=== PATIENT | male | born 1955 | race Caucasian/White ===

== ENCOUNTER 2019-08-12 02:56 | Emergency (ER) | payer SELFPAY ==
[2019-08-12 03:06] VITALS: BP 147/89; PULSE 84; RESP 24; TEMP 36.8; O2SAT 97; BMI 28.2
--- NOTE | 2019-08-12 03:18 | ED_ITS ---
Entered by Diana Mike, acting as scribe for Harry Ramon DO HPI - URI/Sore Throat General: Chief Complaint: Upper Respiratory Infection Stated Complaint: HEAD STOPPED UP Time Seen by Provider: 08/12/19 03:18 Source: patient Mode of arrival: ambulatory Limitations: no limitations History of Present Illness: HPI Narrative: 63 yo m came to the er p[facility] for stuffy nose. Pt states that it has been going on for a few days. Pt states that it got to the point to where it was a little difficult to breath. MD elicited complaint: nasal congestion Onset (ago): day(s) Consistency: constant Severity: mild Associated symptoms: Deny abdominal pain, chills, chest pain, epistaxis, fever(s), headache(s), nausea, sinus pain or vomiting Review of Systems Const: Denies: fever or chills Eyes: Denies: change in vision or blurry vision ENMT: Reports: post nasal drip; Denies: painful swallowing, swelling of lips/tongue, bleeding gums, dental pain, Change in hearing, nose bleeds or facial/sinus pain Card: Denies: chest pain, palpitations, irregular heart rhythm, edema, swelling of feet/ankles, shortness of breath on exertion or shortness of breath when lying down Resp: Denies: shortness of breath, productive cough, non-productive cough or wheezing GI: Denies: abdominal pain, nausea, vomiting, rectal pain, blood in stool or black tarry stool : Denies: difficulty urinating, painful urination, urinary frequency, urinary urgency or blood in urine Musc: Denies: neck pain, back pain, redness or joint warmth Skin/Breast: Denies: rash, itching or redness Neuro: Denies: headache, dizziness, vertigo, confusion or seizure-like activity Psych: Reports: anxiety; Denies: visual hallucinations or auditory hallucinations PFSH ED PFSH: Statuses (acute, chronic, etc) shown below reflect problem list status as previously entered and may not be historically accurate Social History Smoking and tobacco status: former smoker Physical Exam Const: GENERAL APPEARANCE: well developed ORIENTATION/CONSCIOUSNESS: Yes oriented to person, Yes oriented to place and Yes oriented to time HENMT: COMMON NORMALS: normocephalic, external ears normal, TM's normal bilaterally, external nose normal and nasal mucous membranes and turbinates normal HEAD & SCALP: normocephalic; no scalp tenderness FACE & SINUS: normal facial exam NOSE: external nose normal, nasal mucous membranes and turbinates normal and nasal discharge EXTERNAL EAR: Yes external ears normal EXTERNAL AUDITORY CANAL: EAC abnormal EAC laterality: right Details: excessive cerumen and left Details: excessive cerumen TYMPANIC MEMBRANE: TM's normal bilaterally MOUTH: tongue normal THROAT: posterior oropharynx normal; no peritonsillar mass Eye: COMMON NORMALS: PERRL, EOMs intact bilaterally and conjunctivae normal EYELID: eyelids normal CONJUNCTIVA: Yes conjunctivae normal PUPIL: Yes PERRL Neck/C-Spine: COMMON NORMALS: full ROM GENERAL: No tracheal deviation Chest: COMMONS NORMALS: inspection of chest normal CHEST: No tenderness Resp: COMMON NORMALS: clear to auscultation bilaterally EFFORT & INSP ECTION: No tachypneic, No respiratory distress, No retractions, No uses accessory muscles and No tracheal deviation AUSCULTATION: clear to auscultation bilaterally, no rhonchi, no wheezes and lung sounds not diminished Cardio: COMMON NORMALS: regular rate and regular rhythm RATE: regular rate RHYTHM: regular rhythm HEART SOUNDS: no murmurs PERIPHERAL PULSES: radial pulses present GI: INSPECTION: No abdominal distension AUSCULTATION: No hyperactive bowel sounds and No hypoactive bowel sounds PALPATION: No guarding and No rigid PERCUSSION: no dullness to percussion and no tympanic to percussion Neuro: SENSORIUM/ORIENTATION: Yes oriented to person, Yes oriented to place and Yes oriented to time Psych: COMMON NORMALS: speech normal and activity/motor behavior normal (hyperactive) ATTITUDE: Yes agitated ACTIVITY/MOTOR BEHAVIOR: Yes psychomotor agitation SPEECH: Yes normal speech MOOD & AFFECT: Yes anxious Skin: COMMON NORMALS: no rashes or lesions noted GENERAL SKIN EXAM: no rashes or lesions noted Course Vital Signs: Vital signs: Vital Signs Temperature 98.3 F 08/12/19 03:06 Pulse Rate 84 08/12/19 03:06 Respiratory Rate 16 08/12/19 03:53 Blood Pressure 147/89 08/12/19 03:06 Pulse Oximetry 97 08/12/19 03:06 Discharge Plan Discharge Patient Disposition: Home, Self-Care Clinical Impression: Sinusitis Qualifiers: Sinusitis location: ethmoidal Chronicity: acute Recurrence: non-recurrent Qualified Code(s): J01.20 - Acute ethmoidal sinusitis, unspecified Condition: Stable Prescriptions: New Mucinex D Maximum Strength 120-1,200 mg tablet extended release 12 hr 1 tab PO BID PRN (Reason: congestion) Qty: 14 RF: 0 No Action metoprolol tartrate 25 mg Tablet 25 mg PO BID RF: 0 Discharge Orders: Discharge Order (Routine); Ordered 08/12/19 Ordered By: Harry Ramon Referrals: Nickolas Arroyo MD [Family Provider] - 4-7 days Discharge Diet: Usual diet Discharge Activity: Resume usual activity Patient Instructions: Sinusitis (ED) Discharge Date/Time: 08/12/19 03:54 Coding Level of Care Code ED [employer] Director for Chg Wyatt The documentation recorded by the Rashid lopez Stephanie Lyn, accurately reflects the service I personally performed and the decisions made by Tristen engle Jeremy John, DO Aug 12, 2019 02:56
[2019-08-12] MEDS: guaiFENesin 600 mg Tablet PO (03:48)
[2019-08-12] MEDS: LORazepam 2 mg Tablet PO (03:48)
[2019-08-12 03:53] VITALS: RESP 16
== END 2019-08-12 03:54 | disposition home or self-care (01) ==
PROVIDERS: Emergency Provider Emergency Medicine; Family Provider Family Medicine
DX: J01.20 Acute ethmoidal sinusitis, unspecified (principal); Z87.891 Personal history of nicotine dependence
CPT/HCPCS: 99281

== ENCOUNTER 2019-10-29 23:49 | Emergency (ER) | payer SELFPAY ==
[2019-10-29 23:55] VITALS: BP 163/83; PULSE 68; RESP 14; TEMP 36.8; O2SAT 96; BMI 29.5
--- NOTE | 2019-10-30 00:04 | ED_ITS ---
HPI - URI/Sore Throat General: Chief Complaint: Shortness of Breath/Dyspnea Stated Complaint: sob Time Seen by Provider: 10/29/19 23:51 Source: patient Mode of arrival: ambulatory Limitations: no limitations History of Present Illness: HPI Narrative: Patient comes in today with complaints of sinus congestion and pressure. Patient reports previous problems with the last episode occurred in July. Patient was prescribed Mucinex D at that time with good results. Patient appears well. Patient appears in mild discomfort. Patient denies high fever or chills. Patient has a history of sinus arrhythmia which he takes metoprolol for. Associated symptoms: Reports nasal congestion Review of Systems General: Reports: 10 or more systems reviewed and unremarkable except in HPI and below ENMT: Reports: nasal congestion PFSH ED PFSH: Social History Smoking and tobacco status: former smoker Physical Exam Const: COMMON NORMALS: no apparent distress and oriented x3 GENERAL APPEARANCE: cooperative HENMT: COMMON NORMALS: normocephalic and TM's normal bilaterally HEAD & SCALP: normal to inspection and normocephalic NOSE: mucous membranes and turbinates abnormal and nasal discharge TYMPANIC MEMBRANE: TM's normal bilaterally MOUTH: oral and palatal mucosa normal THROAT: posterior oropharynx abnormal erythema Eye: GENERAL EYE: normal appearance of both eyes Neck/C-Spine: COMMON NORMALS: full ROM Lymph: LYMPHATIC: no lymphadenopathy noted Chest: COMMONS NORMALS: inspection of chest normal Resp: COMMON NORMALS: normal respiratory effort EFFORT & INSPECTION: Yes able to speak in complete sentences Cardio: COMMON NORMALS: regular rate and regular rhythm RATE: regular rate RHYTHM: regular rhythm GI: COMMON NORMALS: non-tender : COMMON NORMALS: Yes no CVA tenderness BLADDER/KIDNEY EXAM: Yes no CVA tenderness Back/Pelvis: COMMON NORMALS: no CVA tenderness and thoracic and lumbar spine normal to inspection Extremity: COMMON NORMALS: normal to inspection Neuro: COMMON NORMALS: oriented x3 and moves all extremities Psych: COMMON NORMALS: mental status grossly normal and cooperative Skin: COMMON NORMALS: no rashes or lesions noted GENERAL SKIN EXAM: no rashes or lesions noted Course Vital Signs: Vital signs: Vital Signs Temperature 98.2 F 10/29/19 23:55 Pulse Rate 68 10/29/19 23:55 Respiratory Rate 14 10/29/19 23:55 Blood Pressure 163/83 10/29/19 23:55 Pulse Oximetry 96 10/29/19 23:55 MDM - URI/Sore Throat MDM Narrative: Medical decision making narrative: Patient comes in today with complaints of sinus pressure and headache. Patient appears mildly unwell. Respirations are even lungs are clear to auscultation. Nasal turbinates are swollen and red. Posterior pharynx is erythematous with clear to discolored drainage. Differential diagnosis includes but is not limited to sinusitis, upper respiratory infection, viral syndrome, allergic rhinitis. Reviewed exam with patient recommended treatment for sinusitis. Patient reports understanding agreed to plan. Discharge Plan Discharge Patient Disposition: Home, Self-Care Clinical Impression: Acute rhinosinusitis Condition: Stable Prescriptions: New Mucinex D 60-600 mg tablet extended release 12 hr 1 tab PO BID Qty: 20 RF: 0 Flonase Allergy Relief 50 mcg/actuation spray,suspension 1 spray INTRANASAL BID Qty: 15.8 RF: 0 amoxicillin-pot clavulanate 875-125 mg tablet 1 tab PO BID Qty: 14 RF: 0 No Action metoprolol tartrate 25 mg Tablet 25 mg PO BID RF: 0 Mucinex D Maximum Strength 120-1,200 mg tablet extended release 12 hr 1 tab PO BID PRN (Reason: congestion) Qty: 14 RF: 0 Referrals: Nickolas Arroyo MD [Family Provider] - Discharge Diet: Usual diet Discharge Activity: Increase activity as tolerated Patient Instructions: Sinusitis (ED) Activity Restrictions/Additional Instructions: Drink plenty of water with medications Take medication as directed Follow-up with primary care as needed Return to ER for worsening symptoms or high fever Coding Level of Care Code ED 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
[2019-10-30 00:38] VITALS: RESP 14; TEMP 36.8; O2SAT 96
[2019-10-30] MEDS: amoxicillin-clav 875-125 mg Tablet 1 TAB PO (00:38)
== END 2019-10-30 00:39 | disposition home or self-care (01) ==
PROVIDERS: Emergency Provider Nurse Practitioner Family; Family Provider Family Medicine
DX: J01.90 Acute sinusitis, unspecified (principal); Z87.891 Personal history of nicotine dependence
CPT/HCPCS: 12345; 99281; 99283

== ENCOUNTER 2023-08-29 09:58 | Emergency (ER) | payer OTHER, SELFPAY ==
[2023-08-29] VITALS (37 sets, daily range): BP systolic 90–139; BP diastolic 57–82; PULSE 74–145; RESP 12–20; O2SAT 99–100
--- NOTE | 2023-08-29 | XRR_ITS ---
PROCEDURE INFORMATION: Exam: XR Chest Exam date and time: 08/29/2023 10:10 AM Age: 67 years old Clinical indication: Other: Code TECHNIQUE: Imaging protocol: Radiologic exam of the chest. Views: 1 view. COMPARISON: CR XR abdomen min 2V [id number] 09/20/2021 11:12 AM FINDINGS: Tubes, catheters and devices: Endotracheal tube terminates 5.5 cm above the justa. Lungs: Unremarkable. No consolidation. Pleural spaces: Unremarkable. No pleural effusion. No pneumothorax. Heart/Mediastinum: Unremarkable. No cardiomegaly. Bones/joints: Unremarkable. XR/XR chest 1V portable [id number] IMPRESSION: 1. Endotracheal tube terminates 5.5 cm above the justa. 2. No acute cardiopulmonary findings.
[2023-08-29] MEDS: succinylcholine 20 mg/mL SDV 10mL IVP (10:02)
[2023-08-29] MEDS: dilTIAZem 5 mg/mL SDV 5 mL 20 MG IVP (10:08)
[2023-08-29] MEDS: sodium chloride 0.9% 1,000 ML 999 ML IV ×2 (10:10→19:45)
--- NOTE | 2023-08-29 10:12 | PC.PHAR ---
unable to verify medications with pt-called pts pharmacy [facility] states they had eliquis 5mg bid on hold from september 2022 from office called office states they are not giving the pt samples of eliquis states the only meds they have listed for the pt is metoprolol succ er 50mg daily -albuterol inhaler and a 81mg aspirin once a day-[facility] last filled metoprolol succ er 50mg last filled 05/14/23 90d/s and albuterol inhaler filled 07/17/23-notes are made in the pharmacy comments
--- NOTE | 2023-08-29 10:16 | ECG_ITS ---
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 Measurements Intervals [place] Rate: 114 P: 0 ME: 0 QRS: 95 QRSD: 146 T: -14 QT: 357 QTc: 493 Interpretive Statements ATRIAL FIBRILLATION WITH RAPID VENTRICULAR RESPONSE RIGHT BUNDLE BRANCH BLOCK [120+ ms QRS DURATION, UPRIGHT V1, 40+ ms S IN I/aVL/V4/V5/V6] Compared to ECG 08/29/2023 11:16:29 No significant changes Electronically Signed On 08-29-2023 16:29:51 DETECTIVE AND INTELLIGENCE ANALYST by Gabriele Olguin M.D. [email or web address]
--- NOTE | 2023-08-29 10:22 | ED_ITS ---
HPI - Arrhythmia/Palpitations 2 General: Chief Complaint: Shortness of Breath/Dyspnea Stated Complaint: Resp distress Time Seen by Provider: 08/29/23 11:08 History of Present Illness: 67-year-old male presents to the emergen cy room with complaints of severe respiratory distress the patient has distinctive mottling from the nipple line extending inferior. He has severe air hunger and accompanied by a sense of impending doom. Past medical history, as obtained form primary care provider Dr Arroyo by Dr. Tran, includes atrial fibrillation for which patient is prescribed metoprolol. From available information may not have been filled since 04/2023. He is also supposed to be on Eliquis but it does not look like he has had it refilled/filled for a while. He occasionally has some wheezing and has as needed albuterol for this. He is a former smoker who quit smoking 6 to 10 years ago. He had a borderline blood sugar last time labs were checked but no history of diabetes. Has had issues with sinusitis and upper respiratory illness during prior rare ER visits (2) at our facility. No other known past medical history. Onset (ago): hour(s) Duration: constant Severity: severe Context: occurred during rest Associated symptoms: Reports anxiety, diaphoresis, nausea, sense of impending doom and short of breath; Deny vomiting Review of Systems 2 General: Reports: Other (Minimal review of symptoms due to patient's presentation) Const: Reports: diaphoresis; Denies: fever(s) or chills Card: Reports: chest pain Resp: Reports: dyspnea GI: Reports: nausea; Denies: vomiting Psych: Reports: anxiety PFSH ED 2 PFSH: Medical History Former smoker Atrial fibrillation Family History Mother , from PE in 2020 Pulmonary embolism Social History Smoking and tobacco/nicotine status: former use of tobacco/nicotine Lives independently: Yes Household members: none Housing: Manufactured/Mobile home Marital status: / Marital status details: in 2021 Number of children: 1 Current occupational status: employed Current occupation: Works at [employer] in [place], [place] Physical Exam 2 Const: ORIENTATION/CONSCIOUSNESS: Yes awake, Yes oriented to person, Yes oriented to place and Yes oriented to time HENMT: COMMON NORMALS: normocephalic, atraumatic and hearing grossly normal bilaterally HEAD & SCALP: normocephalic and atraumatic Chest: COMMONS NORMALS: normal inspection of the chest Resp: EFFORT & INSPECTION: No able to speak in complete sentences, Yes abnormal respiratory pattern, Yes tachypneic, Yes respiratory distress, Yes labored and Yes uses accessory muscles Cardio: COMMON NORMALS: regular rhythm and No murmurs present (Cardio) R ATE: tachycardic RHYTHM: regular rhythm GI: COMMON NORMALS: Soft to palpation and No hepatosplenomegaly present A USCULTATION: Yes normoactive bowel sounds PALPATION: Yes Soft to palpation, No Tenderness to palpation present (GI), No Guarding due to palpation present (GI) and Yes No hepatosplenomegaly present Neuro: SENSORIUM/ORIENTATION: Yes oriented to person, Yes oriented to place and Yes oriented to time Skin: COMMON NORMALS: no rashes or lesions noted GENERAL SKIN EXAM: no rashes or lesions noted Procedures Central Line Placement Right SC: Time Out Performed: Yes Patient Placed on Monitor/Pulse Ox: Yes MD Prep: mask, gown and gloves Central Line Prep: Chlorhexidine scrub Ultrasound Used for Placement: Yes Central Line Lumen Inserted: triple Post Procedure: sutured in place, good blood return, all ports aspirated, flushed, capped and sterile dressing applied Post Procedure X-Ray: no pneumothorax seen Patient Tolerated Procedure: well Complications: catheter malposition Additional Comments: Using ultrasound guidance visualized needle and wire into the left subclavian vein without difficulty on first attempt. However on chest x-ray the catheter appears to be on the left side of the heart. Catheter was subsequently removed and reattempted in the right IJ see that note. Right IJ: Patient Placed on Monitor/Pulse Ox: Yes MD Prep: mask, gown and gloves Central Line Prep: Chlorhexidine scrub Ultrasound Used for Placement: Yes Central Line Lumen Inserted: triple Post Procedure: sutured in place, good blood return, all ports aspirated, flushed, capped and sterile dressing applied Post Procedure X-Ray: no pneumothorax seen Patient Tolerated Procedure: well Complications: catheter malposition Additional Comments: 2 attempts made on both attempts chest x-ray shows malposition of the catheter. We confirmed by drawing blood off of the catheter and it does appear to be arterial blood. I asked Dr. Jett one of my colleagues the emergency room as well as Dr. Garcia our radiologist to come to the exam room and they confirmed on ultrasound that we had entered the right IJ was clearly the IJ compressed had thin marti and was nonpulsatile. Despite this the catheter repeatedly shows on the left side of the heart it was removed and later a femoral catheter was placed. Right Femoral: Time Out Performed: Yes Patient Placed on Monitor/Pulse Ox: Yes MD Prep: mask, gown and gloves Central Line Prep: Chlorhexidine scrub Ultrasound Used for Placement: Yes Central Line Lumen Inserted: triple Post Procedure: sutured in place, good blood return and all ports aspirated, flushed, capped Post Procedure X-Ray: tip of catheter in good position Patient Tolerated Procedure: no complications Complications: none Intubation Time out performed: Yes sedative: Etomidate paralytic: Succinylcholine Laryngoscope: fiber optic video scope ET Tube Size: 8.5 ET Tube Uncuffed: No Tube Secured Depth (cm): 22 Tube Placement Confirmation: visualized tube passing through cords, equal breath sounds bilaterally, no breath sounds over epigastrium and confirmation by capnometry Patient Tolerated Procedure: well Intubation Complications: none Course 2 Vital Signs: Vital signs: Vital Signs Pulse Rate 77 08/29/23 20:53 Respiratory Rate 18 08/29/23 20:53 Blood Pressure 100/72 08/29/23 20:53 Pulse Oximetry 100 08/29/23 20:53 Oxygen Delivery Me thod Mechanical Ventil ation 08/29/23 19:45 Fraction of Inspir ed Oxygen 40 08/29/23 19:45 MDM - Arrhythmia/Palpitations Medical Decision Making Patient arrives with severe mottling below the and nipple line. Highly suspicious in his presentation for acute coronary syndrome or pulmonary embolism. EKG showed A-fib with rapid ventricular response. Patient was emergently intubated as we are not able to assess him due to his severe anxiety and he appears to be rapidly deteriorating with his respiratory distress. After intubation his arrhythmia was treated initially with Cardizem he eventually declined into bradycardia and then asystole this CPR was initiated briefly were able to achieve ROSC with minimal interventions after epinephrine and compressions. Patient became tachycardic again this time he was started on amiodarone he became briefly bradycardic and was given atropine. He had various rhythm changes throughout. We were able to eventually get his rhythm stabilized and did require pressors for period of time because he became markedly hypotensive. Central line was initially placed in the right subclavian had good ultrasound window and visualized the needle into the subclavian vein, there is no difficulty in advancing the wire however when the chest x-ray was obtained we are on the left side of the heart. The catheter was removed and compression applied to the subclavian area right IJ was then attempted. On ultrasound window again identified the internal jugular without difficulty and was entered without problems. However subsequent x-rays showed again the line on the left side of the heart. That 1 was removed and another IJ placed this again resulted on the left side of the heart Dr. Garcia and Dr. Jett came to the room I showed them on ultrasound where I had placed the catheter. They both agree that we had cannulated the right IJ. Ronaldo blood from the IJ and does appear to be arterial. Line was removed. 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 CTA showed extensive pulmonary embolism. When placing the central lines there appeared to be significant prominence of both the right subclavian vein and the right IJ based on this and his presentation clinically we felt there was a pulmonary embolism present and he was started on heparin. Patient transferred to [facility] in [place] by area of back. No other available beds in the near appropriate for this patient's clinical condition. Prolonged active management in the room with the patient due to his varying rhythms and difficulty maintaining his blood pressure. Patient was stabilized prior to discharge and actually beginning to improve some were able to titrate off of his pressors. He did ultimately require amiodarone for rate control and we were able to titrate that down to half and eventually off prior to discharge Medical Records I reviewed the patient's medical records. Lab Data I reviewed the patient's lab results. 08/29/23 17:03 08/29/23 17:03 Radiology Impressions Chest X-Ray 08/29/23 11:07 IMPRESSION: 1. Malpositioned right IJ central venous catheter terminates at the left brachiocephalic vein. 2. Endotracheal tube terminates 7 cm above the justa. ADDENDUM: 08/29/23 [id number] THIS REPORT CONTAINS FINDINGS THAT MAY BE CRITICAL TO PATIENT CARE. The findings were verbally communicated via telephone conference with BRYON JAUREGUI at 1:43 PM CLIENT SUCCESS SPECIALIST on 08/29/2023. The findings were acknowledged and understood. During discussion with Dr. Alvarado, he reported subsequent chest CTA showed absent right SVC with persistent left SVC, which makes termination of the right IJ central venous catheter at the distal right brachiocephalic vein versus brachiocephalic-left SVC confluence. Additionally, Dr. Alvarado indicated that the line was already removed and a femoral venous line placed. Laboratory Results WBC 18.32 10^3/uL (3.29-11.43) H 08/29/23 17:03 RBC 4.83 10^6/uL (3.85-5.65) 08/29/23 17:03 Hgb 15.90 g/dL (11.27-16.99) 08/29/23 17:03 Hct 48.8 % (37-53) 08/29/23 17:03 MCV 101.0 fl (82-101) D 08/29/23 17:03 MCH 32.9 pg (27-33) 08/29/23 17:03 MCHC 32.6 g/dL (30-55) 08/29/23 17:03 RDW 12.3 % (12.1-15.1) 08/29/23 17:03 Plt Count 146 10^3/cmm (157-399) L 08/29/23 17:03 MPV 10.3 fL (7.4-10.4) 08/29/23 17:03 Neut % (Auto) 83.4 % 08/29/23 17:03 Lymph % (Auto) 5.5 % 08/29/23 17:03 Avery % (Auto) 9.6 % 08/29/23 17:03 Eos % (Auto) 0.4 % 08/29/23 17:03 Baso % (Auto) 0.3 % 08/29/23 17:03 Neut # (Auto) 15.30 10^3/uL (1.8-7.7) H 08/29/23 17:03 Lymph # (Auto) 1.0 10^3/uL (0.8-4.8) 08/29/23 17:03 Avery # (Auto) 1.8 10^3/uL (0.2-0.9) H 08/29/23 17:03 Eos # (Auto) 0.1 10^3/uL (0.0-0.8) 08/29/23 17:03 Baso # (Auto) 0.1 10^3/uL (0.0-0.1) 08/29/23 17:03 Nucleated RBC % (auto) 0 % 08/29/23 17:03 Nucleated RBCs # 0.0 /100WBC 08/29/23 17:03 PT 17.90 SECONDS (12.1-14.9) H 08/29/23 10:19 INR 1.43 (0.8-1.2) H 08/29/23 10:19 APTT 112.0 SECONDS (23.9-36.7) H D 08/29/23 17:03 D-Dimer 10.22 ug/mLFEU (0-0.59) H 08/29/23 10:19 Specimen Type Arterial 08/29/23 16:35 Sample Site Radial, right 08/29/23 16:35 ABG pH 7.25 (7.35-7.45) L 08/29/23 16:35 ABG pCO2 45.9 mmHg (35-45) H 08/29/23 16:35 ABG pO2 312.0 mmHg (80.0-100.0) H 08/29/23 16:35 ABG PO2/FiO2 Ratio 0 08/29/23 16:35 ABG HCO3 20.2 mmol/L (22-26) L 08/29/23 16:35 ABG O2 Saturation 91.4 08/29/23 12:00 ABG Base Excess -7.1 mmol/L (-2.0-2.0) L 08/29/23 16:35 Juan Test Pos 08/29/23 16:35 A-a O2 Gradient 74.2 mmHg (5-10) H 08/29/23 12:00 Hematocrit 50.0 % (42-52) 08/29/23 16:35 Hgb O2 Saturation 89.0 % (95-100) L 08/29/23 12:00 Carboxyhemoglobin 1.9 %THgb (0.4-20.1) 08/29/23 12:00 Methemoglobin 0.8 % (0.4-1.5) 08/29/23 12:00 Total Hemoglobin 15.8 g/dL (14-18) 08/29/23 12:00 Sodium 137.0 mmol/L (131-143) 08/29/23 12:00 Potassium 4.5 mmol/L (3.5-5.0) 08/29/23 12:00 Glucose 329.0 mg/dL (70-115) H 08/29/23 12:00 Ionized Calcium 1.1 mmol/L (1.1-1.4) 08/29/23 12:00 O2 Delivery Device Vent 08/29/23 16:35 FiO2 75.0 % 08/29/23 16:35 Tidal Volume 0.57 08/29/23 16:35 PEEP 5.0 cmH20 08/29/23 16:35 Family Service Aide ID Walci 08/29/23 16:35 Sodium 135 mmol/L (136-145) L 08/29/23 17:03 Potassium 4.8 mmol/L (3.5-5.1) 08/29/23 17:03 Chloride 105 mmol/L (98-107) 08/29/23 17:03 Carbon Dioxide 19 mmol/L (22-29) L 08/29/23 17:03 Anion Gap 15.8 (5-19) 08/29/23 17:03 BUN 12 mg/dL (8-23) 08/29/23 17:03 Creatinine 1.3 mg/dL (0.7-1.2) H 08/29/23 17:03 GFR Calculation 55.2 mL/min (90-130) L 08/29/23 17:03 Glucose 187 mg/dL (65-115) H 08/29/23 17:03 POC Glucose 171 mg/dL (70-110) H 08/29/23 17:38 Calculated Osmolality 285 mOsm/kg (285-295) 08/29/23 17:03 Lactic Acid 19.8 mmol/L (0.5-2.2) H* 08/29/23 10:19 Lactic Acid (Sepsis) 4.3 mmol/L (0.5-2.2) H* 08/29/23 13:28 Calcium 7.7 mg/dL (8.5-10.5) L 08/29/23 17:03 Phosphorus 5.9 mg/dL (2.5-4.5) H 08/29/23 10:19 Magnesium 2.7 mg/dL (1.7-2.3) H 08/29/23 10:19 Total Bilirubin 0.9 mg/dL (0.15-1.2) 08/29/23 17:03 AST 201 U/L (0-40) H 08/29/23 17:03 ALT 146 U/L (0-41) H 08/29/23 17:03 Alkaline Phosphatase 128 U/L (40-130) 08/29/23 17:03 Ammonia 99 umol/L (16-60) H 08/29/23 11:43 Troponin T Baseline 26 ng/L (0-15) H 08/29/23 10:19 Troponin T 120 Minute 133.7 ng/L (0-15) H 08/29/23 11:43 Delta Troponin T 107.7 ABS# (0-10) H* 08/29/23 11:43 Troponin T Hi Sens 6Hr 293.9 ng/L (0-15) H 08/29/23 16:49 Troponin T Hi Sens 6Hr Delta 267.9 ng/L (0-12) H* 08/29/23 16:49 Total Protein 6.2 g/dL (6.6-8.7) L 08/29/23 17:03 Albumin 3.6 g/dL (3.5-5.2) 08/29/23 17:03 Globulin 2.6 g/dL (1.3-4.6) 08/29/23 17:03 Lipase 21 U/L (13-60) 08/29/23 10:19 Urine Color Yellow (Yellow) 08/29/23 13:03 Urine Appearance Bloody (CLEAR) A 08/29/23 13:03 Urine pH 5 (5-7) 08/29/23 13:03 Ur Specific Leslie 1.005 (1.005-1.030) 08/29/23 13:03 Urine Protein 3+ (Negative) H 08/29/23 13:03 Urine Glucose (UA) 2+ (Normal) H 08/29/23 13:03 Urine Ketones 1+ (Negative) H 08/29/23 13:03 Urine Blood 3+ (Negative) H 08/29/23 13:03 Urine Nitrate Negative (Negative) 08/29/23 13:03 Urine Bilirubin Neg (Negative) 08/29/23 13:03 Urine Urobilinogen Neg mg/dL (Negative) 08/29/23 13:03 Ur Leukocyte Esterase Trace (Negative) H 08/29/23 13:03 Urine RBC Too numerous to cnt /hpf (0-2) H 08/29/23 13:03 Urine WBC 5-10 /hpf (0-5) H 08/29/23 13:03 Ur Squamous Epith Cells 0-4 /hpf (0-5) H 08/29/23 13:03 Amorphous Sediment Not Reportable 08/29/23 13:03 Urine Bacteria 1+ /hpf (NONE) H 08/29/23 13:03 Hyaline Casts 0-4 /lpf H 08/29/23 13:03 Coarse Granular Casts 0-4 /lpf H 08/29/23 13:03 Urine Mucus Trace /hpf 08/29/23 13:03 Serum Ketones Negative (Negative) 08/29/23 10:19 Adenovirus (PCR) Detected (NOT DETECT) A 08/29/23 16:45 C. pneumoniae DNA (PCR) Not detected (NOT DETECT) 08/29/23 16:45 Coronavirus 229E (PCR) Not detected (NOT DETECT) 08/29/23 16:45 Human Metapneumovir PCR Not detected (NOT DETECT) 08/29/23 16:45 Influenza A (H1) PCR Not detected (NOT DETECT) 08/29/23 16:45 Influ A (H1/09) PCR Not detected (NOT DETECT) 08/29/23 16:45 Influenza A (H3) PCR Not detected (NOT DETECT) 08/29/23 16:45 Influenza Type A (PCR) Not detected (NOT DETECT) 08/29/23 16:45 Influenza Type B (PCR) Not detected (NOT DETECT) 08/29/23 16:45 M. pneumoniae (PCR) Not detected (NOT DETECT) 08/29/23 16:45 Parainfluenza 1 (PCR) Not detected (NOT DETECT) 08/29/23 16:45 Parainfluenza 2 (PCR) Not detected (NOT DETECT) 08/29/23 16:45 Parainfluenza 3 (PCR) Not detected (NOT DETECT) 08/29/23 16:45 Parainfluenza 4 (PCR) Not detected (NOT DETECT) 08/29/23 16:45 RSV Type A (PCR) Not detected (NOT DETECT) 08/29/23 16:45 RSV Type B (PCR) Not detected (NOT DETECT) 08/29/23 16:45 Entero/Rhino (PCR) Not detected (NOT DETECT) 08/29/23 16:45 SARS-CoV-2 (PCR) Not detected (NOT DETECT) 08/29/23 16:45 Blood Type O Positive 08/29/23 16:49 Rho(D) Type Rh positive 08/29/23 16:49 Antibody Screen Negative 08/29/23 16:49 All radiology interpretation(s) finalized by discharge Critical Care Time 2 Critical Care Time: Critical Care Time: Yes Total Critical Care Time: 120 Attestation: The high probability of a clinically significant, sudden or life threatening deterioration of the patient's cardiovascular and respiratory system(s) required my full and direct attention, intervention and personal management. The critical care time is as shown. This time is in addition to time spent performing any reported procedures but includes the following: [x] Data and vital sign review and interpretation [x] Patient assessment, examination and intervention [x] Documentation [x] Medication orders and management Prolonged critical care time due to the amount of time patient remained in the ER prior to being discharged and the initial difficulty encountered with managing his rhythm respiratory issues and blood pressure. Discharge Plan Discharge Patient Disposition: Xfer Short-Term Hosp Clinical Impression: Pulmonary embolism, Absence of superior vena cava, Respiratory failure, Atrial fibrillation with RVR Condition: Stable Referrals: Nickolas Arroyo MD [Primary Care Provider] - Coding Level of Care Code ED Sales Enablement Consultant for Neli Schneider
[2023-08-29] MEDS: amiodarone 50 mg/mL SDV 3 mL 150 MG IVP (10:24)
[2023-08-29] MEDS: DOPamine drip 400 MG/250 ML PREMIX 15.38 MG IV (10:27)
[2023-08-29 10:29] LABS: Basophils # 0.1 10^3/uL (0.0-0.1); Basophils % 0.6 %; Eosinophils # 0.4 10^3/uL (0.0-0.8); Eosinophils % 4.3 %; Hematocrit 53.1 % (37-53); Lymphocytes # 3.2 10^3/uL (0.8-4.8); Lymphocytes % 39.7 %; Mean Corpuscular HGB Conc 31.5 g/dL (30-55); Mean Corpuscular Hemoglobin 34.2 pg (27-33); Mean Corpuscular Volume 108.6 fl (82-101); Mean Platelet Volume 10.3 fL (7.4-10.4); Monocytes # 0.7 10^3/uL (0.2-0.9); Monocytes % 8.6 %; Neutrophils # 3.64 10^3/uL (1.8-7.7); Neutrophils % 44.8 %; Nucleated Red Blood Cells % 0.2 %; Platelet Count 122 10^3/cmm (157-399); Red Blood Count 4.89 10^6/uL (3.85-5.65); Red Cell Distribution Width 12.3 % (12.1-15.1); White Blood Count 8.13 10^3/uL (3.29-11.43)
[2023-08-29 10:30] LABS: Arterial Blood Gas Hematocrit 52.5 % (42-52); Base Excess ABG -24.5 mmol/L (-2.0-2.0); Blood Gas Allen Test Pos; Blood Gas Operator Identificat glc; Blood Gas Sample Site Radial, right; Blood Gas Sample Type Arterial; HCO3 ABG 11.7 mmol/L (22-26); Oxygen Device VENT; PO2 FiO2 Ratio Arterial Blood 0
[2023-08-29 10:31] LABS: Alveolar-Arterial Oxygen Gradi 36.8 mmHg (5-10); Arterial Blood Gas Hematocrit 52.9 % (42-52); Base Excess ABG -26.9 mmol/L (-2.0-2.0); Blood Gas Operator Identificat glc; Blood Gas Sample Site Not specified; Blood Gas Sample Type Arterial; Carboxyhemoglobin 0.9 %THgb (0.4-20.1); HCO3 ABG 10.3 mmol/L (22-26); HGB O2 Sat 97.3 % (95-100); Ionized Calcium Level - ABG 1.3 mmol/L (1.1-1.4); Methemoglobin 0.4 % (0.4-1.5); Oxygen Device AMBU; Oxygen Saturation ABG 98.7; PO2 FiO2 Ratio Arterial Blood 0; Potassium Level - ABG 4.2 mmol/L (3.5-5.0); Total Hemoglobin 17.3 g/dL (14-18)
[2023-08-29] MEDS: vecuronium 10 mg SDV IVP (10:31)
--- NOTE | 2023-08-29 10:33 | CT_ITS ---
WS: [id number] CT CHEST ANGIOGRAPHY WITH REFORMATS HISTORY: PE r/o TECHNIQUE: Contiguous axial images are obtained through the chest during arterial injection of intrav enous contrast. Images are reconstructed to evaluate the pulmonary arteries. MIP imaging also reviewe d. All CT scans at [facility] use at least one of these dose optimization techniques: automat ed exposure control; mA and/or kV adjustment per patient size (includes targeted exams where dose is matched to clinical indication); or iterative reconstruction. CONTRAST: Omnipaque 350; 100 mL IV. DLP: 508.53 mGy.cm COMPARISON: None available. Adequate opacification of the pulmonary arteries. Large pulmonary embolic burden is noted beginning i n the distal LEFT and RIGHT pulmonary arteries. Occlusive thrombus bilateral in the lower lobe pulmon kirstie arteries. Nonopacification of the upper lobe pulmonary artery suggesting the additional significa nt burden. There is an abnormal variant anatomy. There is no contrast within the right-sided SVC. There is an ab sent SVC. There is a dilated LEFT SVC which communicates with a dilated coronary sinus which drains i nto the RIGHT atrium. Markedly dilated RIGHT atrium. There is variable density within the RIGHT atriu m. This could be some thrombus within the atrium or just mixing of blood. The RIGHT ventricle is also dilated. There is significant strain on the RIGHT heart. Patient is intubated. Nasogastric tube in good position. Mild hazy attenuation throughout both lungs from mild fluid overload. No significant pleural effusion and no pneumothorax. Cyst upper pole RIGHT kidney. IMPRESSION: 1. Extensive pulmonary embolic burden. Complete occlusion involving the upper and lower lobes centra lly. 2. Persistent LEFT SVC with dilated coronary sinus continuation to the atrium. Absent RIGHT SVC. 3. Severe RIGHT heart strain. 4. Endotracheal tube and nasogastric tubes in good position. Notified Bryon Alvarado DO at 08/29/2023 1:17 PM.
[2023-08-29 10:34] LABS: ABG PH Result 6.81 (7.35-7.45)
[2023-08-29 10:35] LABS: ABG PH Result 6.75 (7.35-7.45)
[2023-08-29] MEDS: fentaNYL 1,000 MCG/100 ML BAG 5 MCG IV (10:40)
[2023-08-29] MEDS: midazolam hcl 100 MG/100 ML BAG IV (10:40)
[2023-08-29 10:47] LABS: INR 1.43 (0.8-1.2)
[2023-08-29] MEDS: heparin 5,000 unit/mL INJ 1 mL 5000 UNIT SUBCUT (10:47)
[2023-08-29 10:48] LABS: Partial Thromboplastin Time 34.5 SECONDS (23.9-36.7)
[2023-08-29 10:49] LABS: Troponin(5th) Baseline 26 ng/L (0-15)
[2023-08-29] MEDS: EPINEPHrine 2.5 MG in sodium chloride 0.9% 250 ML 30.3 MG IV (10:52)
[2023-08-29 10:54] LABS: Alanine Aminotransferase 38 U/L (0-41); Alkaline Phosphatase 109 U/L (40-130); Blood Urea Nitrogen 10 mg/dL (8-23); Calcium 8.8 mg/dL (8.5-10.5); Chloride 99 mmol/L (98-107); Globulin 2.7 g/dL (1.3-4.6); Glomerular Filtration Rate 50.7 mL/min (90-130); Glucose 228 mg/dL (65-115); Osmolality Calculated 294 mOsm/kg (285-295); Sodium 139 mmol/L (136-145); Total Bilirubin 0.7 mg/dL (0.15-1.2); Total Protein 6.7 g/dL (6.6-8.7)
[2023-08-29 10:57] LABS: D Dimer 10.22 ug/mLFEU (0-0.59)
[2023-08-29] MEDS: etomidate 2 mg/mL INJ SDV 10 mL 20 MG IVP (10:59)
[2023-08-29 11:04] LABS: Aspartate Amino Transferase 49 U/L (0-40); Carbon Dioxide 9 mmol/L (22-29)
--- NOTE | 2023-08-29 11:07 | XRR_ITS ---
PROCEDURE INFORMATION: Exam: XR Chest Exam date and time: 08/29/2023 11:23 AM Age: 67 years old Clinical indication: Device placement; Other: Central line TECHNIQUE: Imaging protocol: Radiologic exam of the chest. Views: 1 view. COMPARISON: 1. CR XR chest 1V portable [id number] 08/29/2023 10:10 AM 2. CR XR abdomen min 2V [id number] 09/20/2021 11:12 AM FINDINGS: Tubes, catheters and devices: Endotracheal tube terminates approximately 7 cm above the justa, level of the inferior clavicles. Right IJ central venous catheter appears to terminate at the left brachiocephalic vein. Lungs: Unremarkable. No consolidation. Pleural spaces: Unremarkable. No pleural effusion. No pneumothorax. Heart/Mediastinum: Unremarkable. No cardiomegaly. Bones/joints: Unremarkable. XR/XR chest 1V [id number] IMPRESSION: 1. Malpositioned right IJ central venous catheter terminates at the left brachiocephalic vein. 2. Endotracheal tube terminates 7 cm above the justa.
[2023-08-29 11:12] LABS: Lipase 21 U/L (13-60); Magnesium 2.7 mg/dL (1.7-2.3); Phosphorus 5.9 mg/dL (2.5-4.5)
[2023-08-29] MEDS: heparin drip 25,000 UNIT/500 ML PREMIX 22.96 UNIT IV (11:21)
[2023-08-29] MEDS: propofol 10 mg/mL SDV 20 mL 50 MG IVP (11:23)
[2023-08-29 11:40] LABS: Lactic Sepsis W/Reflex 19.8 mmol/L (0.5-2.2)
[2023-08-29 12:09] LABS: Ammonia 99 umol/L (16-60)
[2023-08-29 12:10] LABS: ABG PCO2 56.8 mmHg (35-45); Alveolar-Arterial Oxygen Gradi 74.2 mmHg (5-10); Arterial Blood Gas Hematocrit 48.4 % (42-52); Base Excess ABG -12.7 mmol/L (-2.0-2.0); Blood Gas Operator Identificat WALCI; Blood Gas Sample Type Arterial; Blood Gas Tidal Volume 0.57; Carboxyhemoglobin 1.9 %THgb (0.4-20.1); HCO3 ABG 17.6 mmol/L (22-26); Ionized Calcium Level - ABG 1.1 mmol/L (1.1-1.4); Methemoglobin 0.8 % (0.4-1.5); Oxygen Device VENT; Oxygen Saturation ABG 91.4; PO2 ABG 76.9 mmHg (80.0-100.0); PO2 FiO2 Ratio Arterial Blood 0; Potassium Level - ABG 4.5 mmol/L (3.5-5.0); Total Hemoglobin 15.8 g/dL (14-18)
--- NOTE | 2023-08-29 12:16 | ECG_ITS ---
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 Measurements Intervals Roach Rate: 107 P: 0 AR: 0 QRS: 94 QRSD: 148 T: -9 QT: 377 QTc: 504 Interpretive Statements ATRIAL FIBRILLATION WITH RAPID VENTRICULAR RESPONSE RIGHT BUNDLE BRANCH BLOCK [120+ ms QRS DURATION, UPRIGHT V1, 40+ ms S IN I/aVL/V4/V5/V6] No previous ECG available for comparison Electronically Signed On 08-29-2023 16:32:44 SUPERVISOR PROCESS TESTING by Gabriele Olguin M.D. [id number]
[2023-08-29 12:35] LABS: Troponin 5 2HR 133.7 ng/L (0-15); Troponin 5 2HR Delta 107.7 ABS# (0-10)
[2023-08-29 12:46] LABS: Reflex Lactate Order REFLEX LACTIC ORDERD
[2023-08-29 12:47] LABS: ABG PH Result 7.01 (7.35-7.45)
[2023-08-29 12:48] LABS: Blood Gas Operator Identificat WALCI; HCO3 ABG 15.9 mmol/L (22-26); Oxygen Device VENT; Oxygen Saturation ABG 92.8; PO2 ABG 91.1 mmHg (80.0-100.0); Potassium Level - ABG 4.7 mmol/L (3.5-5.0)
[2023-08-29 12:49] LABS: Arterial Blood Gas Hematocrit 45.7 % (42-52); Blood Gas Sample Type ARTERIAL; Carboxyhemoglobin 2.2 %THgb (0.4-20.1); HGB O2 Sat 89.9 % (95-100); Ionized Calcium Level - ABG 1.1 mmol/L (1.1-1.4); Methemoglobin 0.9 % (0.4-1.5); Total Hemoglobin 14.9 g/dL (14-18)
[2023-08-29] MEDS: iohexol 350 mg/mL 500 mL Btl (per mL) IV (12:50)
[2023-08-29 13:39] LABS: Add Urine Microscopic? YES; Bilirubin Urine Neg (Negative); Blood Urine 3+ (Negative); Glucose Urine UA 2+ (Normal); Ketones Urine 1+ (Negative); Leukocyte Esterase Urine Trace (Negative); Nitrate Urine Negative (Negative); Protein Urine 3+ (Negative); Specific Gravity, Urine 1.005 (1.005-1.030); Urine Appearance Bloody (CLEAR); Urine Color Yellow (Yellow); Urobilinogen Urine Neg (Negative); pH Urine 5 (5-7)
[2023-08-29 13:40] LABS: Add Urine Culture? Yes; Bacteria Urine 1+ /hpf; Coarse Granular Casts Urine 0-4 /lpf; Hyaline Casts Urine 0-4 /lpf; Mucus Urine TRACE /hpf; RBC Urine TOO NUMEROUS TO CNT /hpf (0-2); Squamous Epithelial Cell Urine 0-4 /hpf (0-5)
[2023-08-29 13:58] LABS: Lactic Acid level (Lactate) 4.3 mmol/L (0.5-2.2)
[2023-08-29] MEDS: piperacillin-tazobactam 3.375 GM in sodium chloride 0.9% (plus) 50 ML IV (14:15)
--- NOTE | 2023-08-29 14:15 | P.CONIM_ITS ---
Providers/Reason For Consult 2 Consulting Physician/Specialty*: Frase/Hospitalist Reason for Consult*: PE/admission/critical care Requesting Physician: Jenny Attending Physician: Jenny Primary Care Provider: Nickolas Arroyo MD History of Present Illness History of Present Illness Luisito Barajas is a 67 year old male who presented to the emergency room with difficulty breathing and mental status changes. Patient works at [employer] locally. He did not show up to work today which is highly unusual for him. The bus and sys integration senior manager at [employer] sent somebody to his house to check on him. They subsequently found him with difficulty breathing and not as alert. He was wearing his clothes for work. Those who found him brought him to ER by private vehicle for evaluation. Patient was struggling to breathe but was communicating some, I can't breath with the emergency room staff and provider when he arrived. He was noted to be in atrial fibrillation with heart rate in the 140s to 150s. Blood pressure was 100s over 50s. Patient was hypoxic on room air. Respirations were in the mid to upper 20s. A short time after he came in, before any medications were able to be administered, he went into PEA arrest. Heart rate precipitously dropped from 150s to 30s and CPR was administered. He had return of spontaneous circulation, with recurrent atrial fibrillation with rapid ventricular response, with less than 1 round of CPR. Patient was confused after this and decision was made to proceed with intubation. After intubation he again became bradycardic and went into PEA arrest. He received atropine and epinephrine IVP x one each. He was loaded on amiodarone and subsequently placed on an amiodarone drip. He did receive 1 dose of IV Cardizem. With improvement in rhythm/return of spontaneous circulation, patient was awakening and responding. He required initiation of sedation -- fentanyl and Versed started -- and subsequently was placed on epinephrine drip. He transiently had dopamine drip but this was subsequently stopped. Bedside echocardiogram revealed evidence of right chamber dilatation. Working diagnosis was pulmonary embolism and a heparin bolus along with drip was initiated. Initial blood gas after cardiac arrest and intubation was 6.75/74/341/10 on to 100% FiO2. Initial lactic acid was 19. Initial D-dimer was 10. CTA of the chest was subsequently done revealing extensive pulmonary embolic burden with complete occlusion involving the upper and lower lobes centrally. Attempts to place right IJ or right subclavian central line resulted in central line being in the left sided heart chambers. CTA of the chest did reveal absent right superior vena cava with a persistent left superior vena cava with dilated coronary sinus continuation into the atrium. Severe right heart strain was noted and endotracheal and nasogastric tubes were found to be in good position. Mr. Barajas lives alone at [facility] here in [place]. His 2 years ago this month. I was able to contact his primary care provider Dr. Nickolas Arroyo and learned that he has a history of atrial fibrillation for which he has been prescribed metoprolol. It was last filled in April 2023 for 90-day supply. He has been prescribed Eliquis previously but has not had it filled for some time. He is a former smoker having quit 6 to 10 years ago and did have an albuterol inhaler to use as needed. His only ever visits here to the emergency room have been for upper respiratory infection/sinusitis x 2 visits. He has had a borderline blood sugar in the past but no known history of diabetes. No known surgical history. No other known medical history. Attempts were made to locate any family via various mechanisms and we were ultimately able to identify that Mr. Barajas has a son and a sister who live in [place]. His son is Ronald Barajas [phone]. His sister is Ludivina Grande (and her Atif Grande) [phone]. Patient's presentation and current clinical condition and findings were discussed with all three and decision was made to work on arranging transfer where patient could be evaluated for intravascular thrombolysis or thrombectomy under the circumstances. At the present time patient is full code although the family is aware of critical condition. Mr. Barajas working up to intending to go to work today. No known recent complaints from those that we have been able to communicate with who know him. His only medical history per his PCP is atrial fibrillation and former tobacco use. I was able to learn that Mr. Barajas's mother of a pulmonary embolism approximately 3 years ago though other details are not known. Roopa gave permission for patient's bus and sys integration senior manager at [employer] and landlord at [facility] to know that Mr. Abreu is in critical condition and will be transferred to another hospital. The landlord at [place] will take care of Mr. Barajas's animals for the time being. Dr. Alvarado is working on transfer. Most recent ABG 7.10/56/76/17. Ronald Barajas is making arrangements to come to [place] from [place] and is aware of plan to transfer. Review of Systems 2 General: Reports: ROS unobtainable due to endotracheal tube and ROS unobtainable due to medical condition Medications/Allergies Home Medications Medication Instructions Recorded Confirmed Last Taken Type albuterol sulfate 90 mcg/actuation 2 puff inhalation Q4H 08/29/23 08/29/23 Unknown History aerosol inhaler (Proventil HFA) aspirin 81 mg tablet,delayed 81 mg PO DAILY 08/29/23 08/29/23 Unknown History release metoprolol succinate 50 mg 50 mg PO DAILY 08/29/23 08/29/23 Unknown History tablet,extended release 24 hr Allergies Allergy/AdvReac Type Severity Reaction Status Date / Time No Known Allergies Allergy Verified 08/12/19 03:05 Current Medications Generic Name Dose Route Start Last Admin Trade Name Freq PRN Reason Stop Dose Admin Fentanyl 1,000 mcg in 100 mls @ 0 mls/hr 08/29/23 10:15 08/29/23 11:35 Sublimaze IV 25 mcg/hr .Q0M SERAFIN 2.5 mls/hr Titration Protocol Per Protocol Midazolam HCl 100 mg in 100 mls @ 0 mls/hr 08/29/23 10:15 08/29/23 10:40 Versed IV 2 mg/hr .Q0M SERAFIN 2 mls/hr Administration Protocol Per Protocol Amiodarone HCl/Dextrose 360 mg in 200 mls @ 0 mls/hr 08/29/23 10:30 08/29/23 13:13 Nexterone IV 1 mg/min .Q0M SERAFIN 33.3 mls/hr Administration Protocol Per Protocol Dopamine HCl/Dextrose 400 mg in 250 mls @ 15.375 mls/hr 08/29/23 10:30 08/29/23 11:25 Intropin Drip IV 0 mcg/kg/min CONT SERAFIN 0 mls/hr Titration Protocol STOPPED 5 MCG/KG/MIN Epinephrine HCl 2.5 mg/ Sodium 252.5 mls @ 0 mls/hr 08/29/23 10:45 08/29/23 11:25 Chloride IV 10 mcg/min .Q0M SERAFIN 60.6 mls/hr Titration Protocol Per Protocol Heparin Sodium/Sodium Chloride 25,000 unit in 500 mls @ 0 mls/hr 08/29/23 11:15 08/29/23 11:21 Heparin Drip IV 14 unit/kg/hr .Q0M SERAFIN 22.96 mls/hr Administration Protocol Per Protocol PFSH Acute 2 PFSH: Medical History Former smoker Atrial fibrillation Family History (Updated 08/29/23 @ 15:04 by Padmini Tran MD) Mother , from PE in 2020 Pulmonary embolism Social History (Updated 08/29/23 @ 15:14 by Padmini Tran MD) Smoking and tobacco/nicotine status: former use of tobacco/nicotine Lives independently: Yes Household members: none Housing: Manufactured/Mobile home Marital status: / Marital status details: in 2021 Number of children: 1 Current occupational status: employed Current occupation: Works at [employer] in [place], [place] Other PFSH information: Supplemental PFSH Information: Son is Ronald Barajas [phone]. Sister is Ludivina Grande (and her Atif Grande) [phone]. Both live in [place]. Vitals/I&O/Wt Last Vital Signs Pulse 129 H 08/29/23 13:00 Resp 18 08/29/23 13:37 BP 109/69 08/29/23 13:00 Pulse Ox 100 08/29/23 13:05 O2 Del Method Mechanical Ventilation 08/29/23 13:05 FiO2 100 08/29/23 13:37 08/28/23 08/29/23 08/29/23 22:59 06:59 14:59 Intake Total 1047.643 / 1047.643 Balance 1047.643 / 1047.643 Physical Exam 2 Narrative: Patient is intubated and sedated. He does respond to stimuli with movements/facial grimace. pupils are equally reactive bilaterally. ET and gastric tubes in place. Neck is large but supple. Lungs are remarkable for clear breath sounds bilaterally. He has an irregularly irregular rhythm, tachycardic. heart sounds are distant. Radial pulses are stronger than pedal pulses. Mottling is noted from the mid higgins to the feet but is more reddish than dusky in appearance at this time compared to mottling earlier. Capillary refill around 3 seconds, on epinephrine at 10 at the time of my examination. Abdomen is soft. No bowel sounds. 8 Slovak pediatric Liriano tubing in place with yellow urine tinged with blood. Central line intact in the right groin. Some chronic skin changes noted to lower extremities. Pitting edema more prominent left lower extremity than right lower extremity but circumference is close to equal. No large bruises or petechiae noted on visible skin surfaces. Patient was not turned at this time to evaluate back and buttock region. No abnormal movements. DTRs are equal at knees and forearms. No posturing appreciated. Urinary Catheter Management: Liriano: Cath Placed During This Visit: yes Urinary Catheter Date of Insertion: 08/29/23 Urinary Catheter Time of Insertion: 10:30 Data 08/29/23 10:19 08/29/23 10:19 Other Labs: Laboratory Tests 08/29/23 08/29/23 08/29/23 09:58 10:15 10:19 WBC 8.13 RBC 4.89 Hgb 16.70 Hct 53.1 H MCV 108.6 H MCH 34.2 H MCHC 31.5 RDW 12.3 Plt Count 122 L MPV 10.3 Neut % (Auto) 44.8 Lymph % (Auto) 39.7 [place] % (Auto) 8.6 Eos % (Auto) 4.3 Baso % (Auto) 0.6 Neut # (Auto) 3.64 Lymph # (Auto) 3.2 [place] # (Auto) 0.7 Eos # (Auto) 0.4 Baso # (Auto) 0.1 Nucleated RBC % (auto) 0.2 Nucleated RBCs # 0.0 PT 17.90 H INR 1.43 H APTT 34.5 D-Dimer 10.22 H Specimen Type Arterial Arterial Sample Site Not specified Radial, right ABG pH 6.75 L* 6.81 L* ABG pCO2 74.4 H* 74.7 H* ABG pO2 341.0 H 50.0 L ABG PO2/FiO2 Ratio 0 0 ABG HCO3 10.3 L 11.7 L ABG O2 Saturation 98.7 ABG Base Excess -26.9 L -24.5 L Juan Test N/a Pos A-a O2 Gradient 36.8 H Hematocrit 52.9 H 52.5 H Hgb O2 Saturation 97.3 Carboxyhemoglobin 0.9 Methemoglobin 0.4 Total Hemoglobin 17.3 Sodium 143.0 139 Potassium 4.2 4.0 Glucose 264.0 H 228 H Ionized Calcium 1.3 O2 Delivery Device Ambu Vent FiO2 100.0 100.0 Rn Circulating ID glc glc Chloride 99 Carbon Dioxide 9 L Anion Gap 35.0 H BUN 10 Creatinine 1.4 H GFR Calculation 50.7 L Calculated Osmolality 294 Lactic Acid 19.8 H* Calcium 8.8 Phosphorus 5.9 H Magnesium 2.7 H Total Bilirubin 0.7 AST 49 H ALT 38 Alkaline Phosphatase 109 Troponin T Baseline 26 H Total Protein 6.7 Albumin 4.0 Globulin 2.7 Lipase 21 08/29/23 08/29/23 08/29/23 11:15 11:43 12:00 Specimen Type Arterial Arterial Sample Site Not Reportable Not Reportable ABG pH 7.01 L* 7.10 L* ABG pCO2 63.0 H* 56.8 H ABG pO2 91.1 76.9 L ABG PO2/FiO2 Ratio 0 ABG HCO3 15.9 L 17.6 L ABG O2 Saturation 92.8 91.4 ABG Base Excess -16.0 L -12.7 L Juan Test Na N/a A-a O2 Gradient Not Reportable 74.2 H Hematocrit 45.7 48.4 Hgb O2 Saturation 89.9 L 89.0 L Carboxyhemoglobin 2.2 1.9 Methemoglobin 0.9 0.8 Total Hemoglobin 14.9 15.8 Sodium 136.0 137.0 Potassium 4.7 4.5 Glucose 330.0 H 329.0 H Ionized Calcium 1.1 1.1 O2 Delivery Device Vent Vent FiO2 100.0 Tidal Volume 0.57 PEEP 5.0 Rn Circulating ID Christy Harrison Ammonia 99 H Troponin T 120 Minute 133.7 H Delta Troponin T 107.7 H* 08/29/23 08/29/23 13:03 13:28 Lactic Acid (Sepsis) 4.3 H* Urine Color Yellow Urine Appearance Bloody A Urine pH 5 Ur Specific [place] 1.005 Urine Protein 3+ H Urine Glucose (UA) 2+ H Urine Ketones 1+ H Urine Blood 3+ H Urine Nitrate Negative Urine Bilirubin Neg Urine Urobilinogen Neg Ur Leukocyte Esterase Trace H Urine RBC Too numerous to cnt H Urine WBC 5-10 H Ur Squamous Epith Cells 0-4 H Amorphous Sediment Not Reportable Urine Bacteria 1+ H Hyaline Casts 0-4 H Coarse Granular Casts 0-4 H Urine Mucus Trace Micro: Microbiology 08/29/23 11:43 Blood Culture - Preliminary Blood SPECIMEN COLLECTED 08/29/23 10:19 Blood Culture - Preliminary Blood SPECIMEN COLLECTED Other data: Radiology Impressions: Entire Visit Chest X-Ray 08/29/23 00:00 IMPRESSION: 1. Endotracheal tube terminates 5.5 cm above the justa. 2. No acute cardiopulmonary findings. Chest X-Ray 08/29/23 11:07 IMPRESSION: 1. Malpositioned right IJ central venous catheter terminates at the left brachiocephalic vein. 2. Endotracheal tube terminates 7 cm above the justa. ADDENDUM: 08/29/23 2661 THIS REPORT CONTAINS FINDINGS THAT MAY BE CRITICAL TO PATIENT CARE. The findings were verbally communicated via telephone conference with BRYON JAUREGUI at 1:43 PM WIRE WINDING MACHINE TENDER on 08/29/2023. The findings were acknowledged and understood. During discussion with Dr. Alvarado, he reported subsequent chest CTA showed absent right SVC with persistent left SVC, which makes termination of the right IJ central venous catheter at the distal right brachiocephalic vein versus brachiocephalic-left SVC confluence. Additionally, Dr. Alvarado indicated that the line was already removed and a femoral venous line placed. CTA CHEST 08/29/2023 12:50 TECHNIQUE: Contiguous axial images are obtained through the chest during arterial injection of intravenous contrast. Images are reconstructed to evaluate the pulmonary arteries. MIP imaging also reviewed. All CT scans at [facility] use at least one of these dose optimization techniques: automated exposure control; mA and/or kV adjustment per patient size (includes targeted exams where dose is matched to clinical indication); or iterative reconstruction. CONTRAST: Omnipaque 350; 100 mL IV. DLP: 508.53 mGy.cm COMPARISON: None available. Adequate opacification of the pulmonary arteries. Large pulmonary embolic burden is noted beginning in the distal LEFT and RIGHT pulmonary arteries. Occlusive thrombus bilateral in the lower lobe pulmonary arteries. Nonopacification of the upper lobe pulmonary artery suggesting the additional significant burden. There is an abnormal variant anatomy. There is no contrast within the right- sided SVC. There is an absent SVC. There is a dilated LEFT SVC which communicates with a dilated coronary sinus which drains into the RIGHT atrium. Markedly dilated RIGHT atrium. There is variable density within the RIGHT atrium. This could be some thrombus within the atrium or just mixing of blood. The RIGHT ventricle is also dilated. There is significant strain on the RIGHT heart. Patient is intubated. Nasogastric tube in good position. Mild hazy attenuation throughout both lungs from mild fluid overload. No significant pleural effusion and no pneumothorax. Cyst upper pole RIGHT kidney. IMPRESSION: 1. Extensive pulmonary embolic burden. Complete occlusion involving the upper and lower lobes centrally. 2. Persistent LEFT SVC with dilated coronary sinus continuation to the atrium. Absent RIGHT SVC. 3. Severe RIGHT heart strain. 4. Endotracheal tube and nasogastric tubes in good position. Notified Bryon Alvarado DO at 08/29/2023 1:17 PM. A&P Assessment and plan (1) Pulmonary embolism: Bilateral large embolic burden beginning in the distal left and right pulmonary arteries with occlusive thrombus bilaterally in the lower lobe pulmonary arteries. Also noted was nonopacification of the upper lobe pulmonary artery suggesting additional significant burden. Clinically consistent with primary acute issue based on available information. No known history of previous clots. He was to have been on Eliquis due to known history of atrial fibrillation but from what we have been able to discern was not taking it nor had he had a refill provided by his primary care provider for a while. D-dimer was 10.22. Platelet count 122 and INR slightly up with normal PTT. Patient's mother of a pulmonary embolism approximately 2020. Based on the fact that patient was dressed for work at [employer] and still able to communicate his inability to breathe when found, suspect he had acute incapacitating event around the time he was due to leave for work. Very fortunate that his bus and sys integration senior manager at [employer] sent someone to find him when she did. Continue heparin drip, following heparin protocol Recommend consideration for transfer to facility where intravascular thrombolysis or thrombectomy could be considered given patient's baseline functioning, past medical history, ability to let us know he could not breathe at arrival along with responsiveness after initial cardiac arrest and past medical history. Will need initiation of oral anticoagulation if recovers Qualifiers: Pulmonary embolism type: other Chronicity: acute Acute cor pulmonale presence: with acute cor pulmonale Qualified Code(s): I26.09 - Other pulmonary embolism with acute cor pulmonale (2) Atrial fibrillation with rapid ventricular response: In a patient with a history of chronic atrial fibrillation that has been managed with metoprolol. Rapid ventricular response today secondary to #1. Status post 1 dose of diltiazem push Status post loading with amiodarone bolus Currently recommend continuation of amiodarone drip per protocol Anticipate potential eventual resumption of beta-blockade if recovers (3) Cardiac arrest with pulseless electrical activity: 2 separate episodes today secondary to #1. Each event lasted for 1 round of CPR and he received 1 round of medication. Has not had recurrent arrest since initiation of anticoagulation (4) Cardiogenic shock: Related to above. Bedside ultrasound/echo revealed dilated right-sided chambers though a formal echo was not completed. Was on dopamine and later switched to epinephrine drip for a while due to persistent hypertension. Also received a liter of fluid. Continue to monitor blood pressures closely off of pressors If requires reinitiation of pressor support prior to transfer will need to let receiving hospital no as may have to consider systemic thrombolytics in that setting (5) Acute respiratory failure: With profound hypoxemia and hypercapnia, severe respiratory and metabolic acidosis Continue ventilatory support, weaning settings as able to maintain appropriate oxygenation Will order repeat ABG Qualifiers: Respiratory failure complication: hypoxia and hypercapnia Qualified Code(s): J96.01 - Acute respiratory failure with hypoxia; J96.02 - Acute respiratory failure with hypercapnia (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 Confirmed by CT imaging reports showing absent on right, persistent on left with dilated coronary sinus continuation. Do not attempt to place central line in the right upper chest Patient currently has central line in the right groin (7) Type 2 myocardial infarction: Delta troponin at 2 hours 107. Presumptively this is a type II process secondary to demand ischemia in the setting of profound hypoxemia and hypotension from subsequent shock. Patient is not known to have a history of coronary artery disease though it is certainly within the differential. Ischemic changes on EKG improved with improvement in heart rate. Status post aspirin therapy 325 mg via NG tube x 1 and is currently on heparin drip Management for pulmonary embolus currently takes precedent but eventually, depending on clinical course may benefit from cardiac evaluation If unable to transfer we will proceed with echocardiogram (8) Macrocytosis: MCV 108. Patient is not known to be a drinker but I was not able to discern that specific history. No prior labs for comparison that include MCV. Not currently anemic. Monitor, plan further evaluation as indicated after acute issues improve (9) Thrombocytopenia: Platelet count 122. Suspect consumptive related to #1 at this point in time. Has a normal baseline PTT at 34. INR 1.43 and PTT 17.9. Had been previously prescribed Eliquis but we have not found indication that he has had it filled lately. With initiation of anticoagulation will have to monitor for further drop, signs of bleeding Already having some gross hematuria noted in Liriano catheter which I suspect is in part due to difficulty with placement of the catheter as noted below (10) Lactic acidosis: Significant lactic acidosis with initial value of 19, down to 4.3 on recheck, secondary to profound hypoxemia and hemodynamic instability brought on by #1 Will recheck tomorrow if still here (11) Mixed acid base balance disorder: Mixed anion gap acidosis with respiratory and metabolic acidosis components from hypoxemia related to pulmonary embolism and lactic acidosis. Serum ketones negative. Will treat acute issues as described and monitor need for additional measures (12) Hyperammonemia: Ammonia was 99. Checked due to unclear history and concern for encephalopathy at presentation. AST is slightly elevated at 49. Other LFTs are normal. Does have slight elevation in INR as well. No known history of alcohol use or known liver disease. Will recheck with repeat LFTs in the morning. At risk for shock liver. 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 Eventually able to place an 8 Slovak pediatric catheter without a balloon with urinary flow. There was some gross hematuria noted though more recent urine has been clear. Catheter was secured in place using pieces from central line kit normally used to secure a central line. Maintain current catheter to ensure we are able to monitor urine output in this critically ill patient Upon transfer consultation with urology may be warranted particularly with anticipation of his need to maintain anticoagulation depending on clinical course. (14) Abnormal urinalysis: With too numerous to count red blood cells and a grossly bloody specimen. Nitrate was negative but leukocyte esterase was trace. Some squamous epithelial cells were also noted. Received 1 dose of Zosyn empirically in the emergency room during evaluation process. Clinically feel #1 accounts for majority of abnormalities identified and infection less likely but difficult to rule out completely at this time. Urine culture is pending For now, given critical nature of presentation will continue empiric antibiotics that have already been initiated. (15) Hyperglycemia: In a patient who has had borderline blood sugars in the past but no history of diabetes. Serum ketones are negative. Will monitor blood sugars, insulin therapy if needed Check A1c along with lipid panel in the morning if remains here (16) Elevated serum creatinine: Suspect secondary to decreased perfusion related to #1 and #4. My understanding is he had normal renal function previously though I do not have the exact laboratory values for comparison. With events of today along with contrast administration, at risk for for acute kidney injury progressing more significantly. Already with evidence of hyperphosphatemia. Monitor renal function and urine output closely, adjusting medications and other management as needed Plan TRANSFER RECOMMENDED DUE TO CLOT BURDEN AND NEED FOR THROMBECTOMY OR INTRAVASCULAR THROMBOLYSIS VTE prophylaxis: on full anticoagulation with heparin drip GI Prophylaxis: initiate PPI if not able to transfer soon Antibiotics: started on Zosyn empirically due to critical illness and abnormal urinalysis, have continued empirically currently given multiorgan abnormalities Pending studies: blood and urine cultures collected 08/29/2023, respiratory panel ordered, serial labs, am labs for tomorrow if needed Telemetry: currently monitoring secondary to recurrent PEA arrest and atrial fibrillation Liriano: currently indicated due to critical illness, has meatal stenosis with 8 Slovak pediatric catheter without a balloon in place secured currently with central line suture caps, some gross hematuria after placement was noted Line(s): central line in the right groin, do not attempt to place central line in the right upper chest secondary to congenital malformation with absent SVC on the right and persistent SVC on the left Disposition plan: Currently recommend transfer to facility where thrombectomy or intravascular thrombolysis could be considered. Patient is critically ill with poor prognosis without intervention and even potentially with. Factors in his favor are evidently being found quickly today, generally good health from available information and the fact that he has remained active, working. Ultimately disposition will depend on clinical course Code Status: Full Code currently as per discussion with family. They are aware of the critical nature of patient's condition and that there is a chance he may not survive. Findings, concerns and plans were discussed with patient's son and his sister and they were given an opportunity to ask questions. His son Ronald is going to make his way to [place] from [place]. I have asked him to contact the emergency room periodically while we try to find an ICU bed somewhere so he will have a better idea of where too go. CONTACT INFO FOR FAMILY: Son is Ronald Barajas [phone]. Sister is Ludivina Grande (and her Atif Grande) [phone]. Both live in [place]. OTHER INFORMATION: Patient's primary care provider Dr. Nickolas Arroyo at [facility] was updated on critical nature of his condition and plan for transfer to a higher level of care Landlord at [facility] where patient resides will care for his animals Bowling Floor Manager at [facility] was made aware of need to get Mr Barajas's shifts at work covered Family indicated, per my discussions with them on phone, okay to let the above 2 persons (bus and sys integration senior manager at [facility] and landlord at [facility]) know that Mr Barajas is in critical condition and will be transferred to another facility per my discussions with them on phone Consult Attestations 2 Medical Necessity Statement: Patient is critically ill due to extensive bilateral pulmonary emboli associated with cor pulmonale and multiorgan impact as described above. Currently requiring ventilatory support, full anticoagulation, close monitoring, serial labs and other critical care. Without care received today, patient would have . Currently best option for him is consideration for thrombectomy or intravascular thrombolysis neither of which we are able to perform at this facility. He has been initiated on heparin drip. He has been weaned off of pressor support so consideration for systemic thrombolysis has been held at this point in time while we attempt to transfer to a higher level of care. Coding Level of Care Code 67265 High MDM includes amount and/or complexity of data reviewed/ordered [ previous or external records (all available ), resulted lab(s)/test(s) (multiple), ordered lab(s)/test(s) (multiple), independent historian (Son, Sister, several people in attempt to locate family, ED nursing) and other healthcare professional discussion (ED, PCP)] and described risk of complication, morbidity or mortality of management as documented Diagnoses Other acute pulmonary embolism with acute cor pulmonale I26.09 Pulmonary embolism type: other Chronicity: acute Acute cor pulmonale presence: with acute cor pulmonale Atrial fibrillation with rapid ventricular response I48.91 Cardiac arrest with pulseless electrical activity I46.9 Cardiogenic shock R57.0 Acute respiratory failure with hypoxia and hypercapnia J96.01; J96.02 Respiratory failure complication: hypoxia and hypercapnia 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
--- NOTE | 2023-08-29 14:40 | PC.NURSE ---
CODE BLUE; 1000: Code Called Overhead. CPR initiated, lasted for estimated 30 seconds. ROSC obtained. (A-fib) 1002: Orders given for ABG, Lactic, Cultures, CBC, CMP, PT, PTT, OG placement, BMP, Stat CXR, Resp Panel, Trop Series, EKG Series, CTA of chest, and D-dimer 1004: 20 Etom, and 100 Succs given IVP for intubation. 1005: Pt intubated with 8.0 ETT and 23@teeth. BG 205. 1008: 20mg Cardizem IVP 1015: 1mg Atropine IVP (Bradycardia) 1018: Pt Asystole. CPR initiated. 1 Amp Epi IVP 1020: Pulse check. ROSC- Afib RVR. Cardizem gtt ordered. 1022: IVF NS Bolus 1024: 150mg IVP Amio. Amio Gtt ordered. 1027: Dopamine gtt initiated @5. 1031: 10 Vec IVP 1032: 50mg IVP Prop 1034: Dopamine gtt increased to 10. 1040: Versed gtt initiated @2. Fentanyl gtt initiated @50. 1047: Heparin IVP 4000units bolus given. Heparin gtt ordered. 1050: Epi gtt initiated @5mcg. Dopamine gtt stopped.
[2023-08-29 15:41] LABS: Ketone (Acetest) Serum Negative (Negative)
--- NOTE | 2023-08-29 16:16 | ECG_ITS ---
[facility] Test Date: 2023-08-29 Pat Name: Luisito Barajas Department: Room: Gender: Male Captain'S Assistant: : 1955 Requested By: Bryon Jang Order Number: [id number] Bebeto MD: Gabriele Olguin M.D. Measurements Intervals [place] Rate: 82 P: 0 DC: 0 QRS: 83 QRSD: 94 T: 50 QT: 374 QTc: 438 Interpretive Statements ATRIAL FIBRILLATION Compared to ECG 08/29/2023 13:37:31 Right bundle-branch block no longer present Electronically Signed On 08-29-2023 16:32:17 SET BUILDER by Gabriele Olguin M.D. [id number]
[2023-08-29 16:46] LABS: ABG PCO2 45.9 mmHg (35-45); ABG PH Result 7.25 (7.35-7.45); Base Excess ABG -7.1 mmol/L (-2.0-2.0); Blood Gas Allen Test Pos; Blood Gas Operator Identificat WALCI; Blood Gas Sample Site Radial, right; Blood Gas Sample Type Arterial; Blood Gas Tidal Volume 0.57; HCO3 ABG 20.2 mmol/L (22-26); Oxygen Device VENT; PO2 FiO2 Ratio Arterial Blood 0
[2023-08-29] MEDS: pantoprazole 40 mg SDV IVP (16:49)
[2023-08-29 17:29] LABS: Basophils # 0.1 10^3/uL (0.0-0.1); Basophils % 0.3 %; Eosinophils # 0.1 10^3/uL (0.0-0.8); Eosinophils % 0.4 %; Hematocrit 48.8 % (37-53); Lymphocytes % 5.5 %; Mean Corpuscular HGB Conc 32.6 g/dL (30-55); Mean Corpuscular Hemoglobin 32.9 pg (27-33); Mean Platelet Volume 10.3 fL (7.4-10.4); Monocytes # 1.8 10^3/uL (0.2-0.9); Monocytes % 9.6 %; Neutrophils % 83.4 %; Nucleated Red Blood Cells % 0 %; Platelet Count 146 10^3/cmm (157-399); Red Blood Count 4.83 10^6/uL (3.85-5.65); Red Cell Distribution Width 12.3 % (12.1-15.1); White Blood Count 18.32 10^3/uL (3.29-11.43)
[2023-08-29 17:40] LABS: Glucose Point of Care 171 mg/dL (70-110)
[2023-08-29 17:53] LABS: Alanine Aminotransferase 146 U/L (0-41); Albumin Level 3.6 g/dL (3.5-5.2); Alkaline Phosphatase 128 U/L (40-130); Anion Gap 15.8 (5-19); Aspartate Amino Transferase 201 U/L (0-40); Blood Urea Nitrogen 12 mg/dL (8-23); Calcium 7.7 mg/dL (8.5-10.5); Carbon Dioxide 19 mmol/L (22-29); Chloride 105 mmol/L (98-107); Globulin 2.6 g/dL (1.3-4.6); Glomerular Filtration Rate 55.2 mL/min (90-130); Glucose 187 mg/dL (65-115); Osmolality Calculated 285 mOsm/kg (285-295); Potassium 4.8 mmol/L (3.5-5.1); Sodium 135 mmol/L (136-145); Total Bilirubin 0.9 mg/dL (0.15-1.2); Total Protein 6.2 g/dL (6.6-8.7)
[2023-08-29 18:06] LABS: Troponin 5 6HR 293.9 ng/L (0-15); Troponin 5 6HR Delta 267.9 ng/L (0-12)
[2023-08-29 19:37] LABS: Adenovirus Detected (NOT DETECT); Chlamydia Pneumoniae Not Detected (NOT DETECT); Coronavirus 229E,HKU1,NL63,OC4 Not Detected (NOT DETECT); Human Metapneumovirus Not Detected (NOT DETECT); Human Rhinovirus/Enterovirus Not Detected (NOT DETECT); Influenza A Not Detected (NOT DETECT); Influenza A H1 Not Detected (NOT DETECT); Influenza A H1-2009 Not Detected (NOT DETECT); Influenza A H3 Not Detected (NOT DETECT); Influenza B Not Detected (NOT DETECT); Mycoplasma Pneumoniae Not Detected (NOT DETECT); Parainfluenza Virus Type 1 Not Detected (NOT DETECT); Parainfluenza Virus Type 2 Not Detected (NOT DETECT); Parainfluenza Virus Type 3 Not Detected (NOT DETECT); Parainfluenza Virus Type 4 Not Detected (NOT DETECT); Respiratory Syncytial Virus A Not Detected (NOT DETECT); Respiratory Syncytial Virus B Not Detected (NOT DETECT); SARS-COV-2 Not Detected (NOT DETECT)
--- NOTE | 2023-08-29 19:57 | PC.NURSE ---
This nurse spoke to pt son, Ronald Barajas, to notify him that we are tx his father to [facility] in .
--- NOTE | 2023-08-29 21:19 | PC.NURSE ---
Pt belongings left in ER 10. Pt son Ronald Barajas notified that belongings were left and are stored in ER supervisors office. Son stated he would call back at a later tonight regarding the collection of belongings. Pt belongings are as follows: Black wallet (2- $1 dollar bills) , black sandals, black pants, glasses, black hat, one pair of black socks, an inhaler, batman necklace, batman ringx2, and green watch. Belongings inventoried with GLENNY Collier.
[2023-08-30 09:51] LABS: Glucose Point of Care 205 mg/dL (70-110)
[2023-10-03 07:26] LABS: ABG PCO2 74.4 mmHg (35-45)
[2023-10-03 07:27] LABS: ABG PCO2 74.7 mmHg (35-45)
== END 2023-08-29 20:53 | disposition short-term general hospital (02) ==
PROVIDERS: Hospitalist; Emergency Provider Family Medicine; PCP Family Medicine
DX: I48.20 Chronic atrial fibrillation, unspecified (principal); I26.99 Other pulmonary embolism without acute cor pulmonale; J96.90 Respiratory failure, unspecified, unspecified whether with hypoxia or hypercapnia; Q26.8 Other congenital malformations of great veins; Z11.52 Encounter for screening for COVID-19; Z87.891 Personal history of nicotine dependence
CPT/HCPCS: 31500; 36415; 36416; 36556; 36600; 51702; 71045; 71275; 80051; 80053; 81001; 82009; 82140; 82330; 82803; 82805; 82962; 83605; 83690; 83735; 84100; 84484; 85025; 85378; 85610; 85730; 86850; 86900; 87040; 87070; 87086; 87205; 87486; 87581; 87633; 93005; 94002; 94799; 96365; 96366; 96367; 96375; 99291; 99292; C1751; C9113; J0171; J0282; J0283; J0330; J1265; J1644; J2250; J2543; J2704; J3010; J3490; J7030; J7050; Q9967

== ENCOUNTER → 2023-10-18 15:14 | Outpatient (BNVA) | payer OTHER, SELFPAY | PROVIDERS: PCP Family Medicine; Visit Provider Nurse Practitioner Family | DX: L57.8 Other skin changes due to chronic exposure to nonionizing radiation (principal); L82.1 Other seborrheic keratosis; L81.4 Other melanin hyperpigmentation; D22.62 Melanocytic nevi of left upper limb, including shoulder; L85.3 Xerosis cutis | CPT/HCPCS: 99203 ==

== ENCOUNTER → 2023-12-25 10:57 | Outpatient (BNVA) | payer OTHER, SELFPAY | PROVIDERS: PCP Family Medicine; Visit Provider Internal Medicine | DX: I48.91 Unspecified atrial fibrillation (principal); I26.09 Other pulmonary embolism with acute cor pulmonale; R94.31 Abnormal electrocardiogram [ECG] [EKG] | CPT/HCPCS: 93005; 99204 ==

== ENCOUNTER → 2024-07-03 12:30 | Outpatient (BNVA) | payer OTHER, SELFPAY | PROVIDERS: PCP Family Medicine; Visit Provider Internal Medicine | DX: I48.91 Unspecified atrial fibrillation (principal); Z86.711 Personal history of pulmonary embolism; Z87.891 Personal history of nicotine dependence | CPT/HCPCS: 99214 ==

== ENCOUNTER → 2024-10-28 14:36 | Outpatient (BNVA) | payer MEDICARE, SELFPAY | PROVIDERS: PCP Family Medicine; Visit Provider Nurse Practitioner Family | DX: L57.8 Other skin changes due to chronic exposure to nonionizing radiation (principal); L81.4 Other melanin hyperpigmentation; D22.62 Melanocytic nevi of left upper limb, including shoulder; L85.3 Xerosis cutis; Z92.25 Personal history of immunosuppression therapy; L82.0 Inflamed seborrheic keratosis; Z78.9 Other specified health status; L53.8 Other specified erythematous conditions; R20.8 Other disturbances of skin sensation; L29.89 Other pruritus; L57.0 Actinic keratosis | CPT/HCPCS: 17000; 17110; 99213 ==

== ENCOUNTER 2024-12-15 08:40 | Inpatient (IN) | payer MEDICARE, SELFPAY ==
[2024-12-15] VITALS (11 sets, daily range): BP systolic 101–131; BP diastolic 57–86; PULSE 88–151; RESP 16–32; TEMP 36.7–37.1; O2SAT 93–100; BMI 24.3
--- NOTE | 2024-12-15 08:43 | ECG_ITS ---
[facility]: 2024-[facility]15 Pat Name: Luisito Barajas Department: Room: Gender: Male Switchboard Installer: : 1955 Requested By: Bryon Jang Order Number: [id number] Bebeto MD: Gabriele Olguin M.D. Measurements Intervals [place] Rate: 114 P: 0 IN: 0 QRS: 32 QRSD: 89 T: 71 QT: 300 QTc: 413 Interpretive Statements ATRIAL FIBRILLATION WITH RAPID VENTRICULAR RESPONSE Compared to ECG 12/25/2023 11:09:33 ST (T wave) deviation no longer present Electronically Signed On 12-17-2024 11:40:39 CDT by Gabriele Olguin M.D. [id number]
--- NOTE | 2024-12-15 08:43 | XRR_ITS ---
PROCEDURE INFORMATION: Exam: XR Chest Exam date and time: 12/15/2024 8:58 AM Age: 69 years old Clinical indication: Cough and dyspnea; Additional info: Dyspnea/cough TECHNIQUE: Imaging protocol: Radiologic exam of the chest. Views: 1 view. COMPARISON: CT angio chest PE protcl [id number] 08/29/2023 12:41 PM FINDINGS: Lungs: The pulmonary vessels are within normal limits. The lungs are clear. Pleural spaces: No pneumothorax. Heart/Mediastinum: The cardiomediastinal silhouette is within normal limits. Bones/joints: Osseous structure is unremarkable. XR/XR chest 1V portable [id number] IMPRESSION: No acute pulmonary finding.
--- NOTE | 2024-12-15 08:43 | W.ED.GENADLT ---
HPI - General Adult General: Chief complaint: Arrhythmia/Palpitations Stated complaint: shaking, swollen legs Time Seen by Provider: 12/15/24 08:42 History of Present Illness: 69-year-old male presents to the emergency room complaining of right leg pain that started overnight. Its red and inflamed warm to the touch she is tachycardic he denies fever that he measured at home but has felt sweats and chills. He has a history of A-fib and history of PEs he is on Coumadin has not missed any doses. Denies any recent antibiotics no trauma to the affected leg. Associated symptoms: Deny chest pain, dyspnea or rash Related Data Home Medications ?Medication ?Instructions ?Recorded ?Confirmed furosemide 20 mg tablet 20 mg PO DAILY edema 12/25/23 12/15/24 metoprolol succinate 50 mg 25 mg PO DAILY 12/25/23 12/15/24 tablet,extended release 24 hr spironolactone 25 mg tablet 25 mg PO DAILY 12/25/23 12/15/24 warfarin 5 mg tablet 5 mg PO DAILY 12/25/23 12/15/24 acetaminophen 500 mg tablet 500 - 1,000 mg PO Q6H PRN Pain 07/03/24 12/15/24 (Tylenol Extra Strength) warfarin 1 mg tablet See Rx Instructions .Route .COMPLEX 07/03/24 12/15/24 fluoxetine 20 mg capsule 20 mg PO DAILY 12/15/24 12/15/24 Allergies Allergy/AdvReac Type Severity Reaction Status Date / Time No Known Allergies Allergy Verified 07/03/24 12:37 Review of Systems Const: Reports: fever(s) (Subjective); Denies: chills Card: Denies: chest pain Resp: Denies: dyspnea GI: Denies: abdominal pain : Denies: dysuria, urinary frequency or urinary urgency Musc: Denies: neck pain or back pain Skin/Breast: Denies: rash PFS ED PFSH: Medical History (Updated 12/15/24 @ 10:25 by Bryon Alvarado DO) Atrial fibrillation with rapid ventricular response Thrombocytopenia Pulmonary embolism Former smoker Atrial fibrillation Family History Mother , from PE in 2020 Pulmonary embolism Social History Smoking and tobacco/nicotine status: former use of tobacco/nicotine Lives independently: Yes Household members: none Housing: Manufactured/Mobile home Marital status: / Marital status details: in 2021 Number of children: 1 Current occupational status: employed Current occupation: Works at [employer] in [place], [place] Physical Exam Const: GENERAL APPEARANCE: cooperative ORIENTATION/CONSCIOUSNESS: Yes awake, Yes oriented to person, Yes oriented to place and Yes oriented to time HENMT: COMMON NORMALS: normocephalic, atraumatic and hearing grossly normal bilaterally HEAD & SCALP: normocephalic and atraumatic Resp: COMMON NORMALS: normal respiratory effort, No retractions, No use of accessory muscles and clear to auscultation bilaterally AUSCULTATION: clear to auscultation bilaterally Cardio: COMMON NORMALS: regular rate, regular rhythm and No murmurs present (Cardio) RATE: regular rate RHYTHM: regular rhythm GI: COMMON NORMALS: Soft to palpation and No hepatosplenomegaly present AUSCULTATION: Yes normoactive bowel sounds PALPATION: Yes Soft to palpation, No Tenderness to palpation present (GI), No Guarding due to palpation present (GI) and Yes No hepatosplenomegaly present Extremity: OTHER: Bilaterally has lower extremity edema pulses palpable at dorsalis pedis. To the right lower leg is red and inflamed no focus of infection no sign of abscess. Is circumferential in nature involves the lower half of the lower leg. Does not extend to the toes. Neuro: SENSORIUM/ORIENTATION: Yes oriented to person, Yes oriented to place and Yes oriented to time Skin: COMMON NORMALS: no rashes or lesions noted GENERAL SKIN EXAM: no rashes or lesions noted Course Vital Signs: Vital signs: Vital Signs Temperature 98.1 F 12/15/24 08:54 Pulse Rate 121 H 12/15/24 09:13 Respiratory Rate 32 H 12/15/24 09:13 Blood Pressure 115/67 12/15/24 09:13 Pulse Oximetry 95 12/15/24 09:13 Oxygen Delivery Me thod Room Air 12/15/24 08:54 MDM - General Adult Medical Decision Making DVT unlikely patient is therapeutic on his INR. Patient does have cellulitis elevated lactic acid leukocytosis patient is given initial fluid bolus he did respond well to that. Cultures ordered patient started on IV antibiotics. Medical Records I reviewed the patient's medical records. Lab Data I reviewed the patient's lab results. 12/15/24 08:58 12/15/24 08:58 Radiology Impressions Chest X-Ray 12/15/24 08:43 IMPRESSION: No acute pulmonary finding. Laboratory Results WBC 12.20 10^3/uL (3.29-11.43) H 12/15/24 08:58 RBC 4.51 10^6/uL (3.85-5.65) 12/15/24 08:58 Hgb 14.90 g/dL (11.27-16.99) 12/15/24 08:58 Hct 43.5 % (37-53) 12/15/24 08:58 MCV 96.5 fl (82-101) 12/15/24 08:58 MCH 33.0 pg (27-33) 12/15/24 08:58 MCHC 34.3 g/dL (30-55) 12/15/24 08:58 RDW 12.5 % (12.1-15.1) 12/15/24 08:58 Plt Count 129 10^3/cmm (157-399) L 12/15/24 08:58 MPV 10.1 fL (7.4-10.4) 12/15/24 08:58 Neut % (Auto) 87.7 % 12/15/24 08:58 Lymph % (Auto) 2.6 % 12/15/24 08:58 Ramsey % (Auto) 8.9 % 12/15/24 08:58 Eos % (Auto) 0.2 % 12/15/24 08:58 Baso % (Auto) 0.2 % 12/15/24 08:58 Neut # (Auto) 10.69 10^3/uL (1.8-7.7) H 12/15/24 08:58 Lymph # (Auto) 0.3 10^3/uL (0.8-4.8) L 12/15/24 08:58 Ramsey # (Auto) 1.1 10^3/uL (0.2-0.9) H 12/15/24 08:58 Eos # (Auto) 0.0 10^3/uL (0.0-0.8) 12/15/24 08:58 Baso # (Auto) 0.0 10^3/uL (0.0-0.1) 12/15/24 08:58 Nucleated RBC % (auto) 0 % 12/15/24 08:58 Nucleated RBCs # 0.0 /100WBC 12/15/24 08:58 PT 25.80 SECONDS (12.1-14.9) H 12/15/24 08:58 INR 2.21 (0.8-1.2) H 12/15/24 08:58 Sodium 135 mmol/L (136-145) L 12/15/24 08:58 Potassium 3.7 mmol/L (3.5-5.1) 12/15/24 08:58 Chloride 100 mmol/L (98-107) 12/15/24 08:58 Carbon Dioxide 20 mmol/L (22-29) L 12/15/24 08:58 Anion Gap 18.7 (5-19) 12/15/24 08:58 BUN 18 mg/dL (8-23) 12/15/24 08:58 Creatinine 1.2 mg/dL (0.7-1.2) 12/15/24 08:58 GFR Calculation 60.2 mL/min (90-130) L 12/15/24 08:58 Glucose 122 mg/dL (65-115) H 12/15/24 08:58 Calculated Osmolality 283 mOsm/kg (285-295) L 12/15/24 08:58 Lactic Acid 2.8 mmol/L (0.5-2.2) H 12/15/24 08:58 Calcium 8.7 mg/dL (8.5-10.5) 12/15/24 08:58 Total Bilirubin 0.9 mg/dL (0.15-1.2) 12/15/24 08:58 AST 23 U/L (0-40) 12/15/24 08:58 ALT 20 U/L (0-41) 12/15/24 08:58 Alkaline Phosphatase 88 U/L (40-130) 12/15/24 08:58 Total Protein 6.8 g/dL (6.6-8.7) 12/15/24 08:58 Albumin 4.1 g/dL (3.5-5.2) 12/15/24 08:58 Globulin 2.7 g/dL (1.3-4.6) 12/15/24 08:58 Urine Color Yellow (Yellow) 12/15/24 09:58 Urine Appearance Clear (CLEAR) 12/15/24 09:58 Urine pH 5.0 (5-7) 12/15/24 09:58 Ur Specific [place] 1.008 (1.005-1.030) 12/15/24 09:58 Urine Protein Negative (Negative) 12/15/24 09:58 Urine Glucose (UA) Negative (Normal) 12/15/24 09:58 Urine Ketones Negative (Negative) 12/15/24 09:58 Urine Blood Non-haemolysed trace (Negative) 12/15/24 09:58 Urine Nitrate Negative (Negative) 12/15/24 09:58 Urine Bilirubin Negative (Negative) 12/15/24 09:58 Urine Urobilinogen 0.2 mg/dL (Negative) 12/15/24 09:58 Ur Leukocyte Esterase Negative (Negative) 12/15/24 09:58 Urine RBC 0-2 /hpf (0-2) 12/15/24 09:58 Urine WBC 0-5 /hpf (0-5) 12/15/24 09:58 Ur Squamous Epith Cells 0-5 /hpf (0-5) 12/15/24 09:58 Amorphous Sediment Not Reportable 12/15/24 09:58 Urine Bacteria None seen /hpf (NONE) 12/15/24 09:58 Hyaline Casts 0-4 /lpf H 12/15/24 09:58 All radiology interpretation(s) finalized by discharge Discharge Plan Discharge Patient Disposition: Admitted As Inpatient Admit Provider: Stefanie Cobb Clinical Impression: Cellulitis of right lower leg, Thrombocytopenia, Atrial fibrillation with rapid ventricular response, Hx pulmonary embolism, Sepsis Condition: Stable Coding Level of Care Code ED Quantitative Associate for Neli Schneider
[2024-12-15 09:17] LABS: Basophils % 0.2 %; Eosinophils % 0.2 %; Hematocrit 43.5 % (37-53); Lymphocytes # 0.3 10^3/uL (0.8-4.8); Lymphocytes % 2.6 %; Mean Corpuscular HGB Conc 34.3 g/dL (30-55); Mean Corpuscular Volume 96.5 fl (82-101); Mean Platelet Volume 10.1 fL (7.4-10.4); Monocytes # 1.1 10^3/uL (0.2-0.9); Monocytes % 8.9 %; Neutrophils # 10.69 10^3/uL (1.8-7.7); Neutrophils % 87.7 %; Nucleated Red Blood Cells % 0 %; Platelet Count 129 10^3/cmm (157-399); Red Blood Count 4.51 10^6/uL (3.85-5.65); Red Cell Distribution Width 12.5 % (12.1-15.1)
--- NOTE | 2024-12-15 09:31 | PC.PHAR ---
Patient states he still takes Furosemide 20mg ,last fill 02/11/24,90days, and Metoprolol Succinate 50 mg last fill 05/27/24 90days.
[2024-12-15 09:41] LABS: Alanine Aminotransferase 20 U/L (0-41); Albumin Level 4.1 g/dL (3.5-5.2); Alkaline Phosphatase 88 U/L (40-130); Anion Gap 18.7 (5-19); Aspartate Amino Transferase 23 U/L (0-40); Blood Urea Nitrogen 18 mg/dL (8-23); Calcium 8.7 mg/dL (8.5-10.5); Carbon Dioxide 20 mmol/L (22-29); Chloride 100 mmol/L (98-107); Creatinine Clr Calc Pharmacy 69.8277; Globulin 2.7 g/dL (1.3-4.6); Glomerular Filtration Rate 60.2 mL/min (90-130); Glucose 122 mg/dL (65-115); Lactic Sepsis W/Reflex 2.8 mmol/L (0.5-2.2); Osmolality Calculated 283 mOsm/kg (285-295); Potassium 3.7 mmol/L (3.5-5.1); Sodium 135 mmol/L (136-145); Total Bilirubin 0.9 mg/dL (0.15-1.2); Total Protein 6.8 g/dL (6.6-8.7)
[2024-12-15 09:43] LABS: Reflex Lactate Order REFLEX LACTIC ORDERD
[2024-12-15 09:51] LABS: INR 2.21 (0.8-1.2)
[2024-12-15 10:11] LABS: Bilirubin Urine Negative (Negative); Blood Urine Non-haemolysed trace (Negative); Glucose Urine UA Negative (Normal); Ketones Urine Negative (Negative); Leukocyte Esterase Urine Negative (Negative); Nitrate Urine Negative (Negative); Protein Urine Negative (Negative); Specific Gravity, Urine 1.008 (1.005-1.030); Urine Appearance Clear (CLEAR); Urine Color Yellow (Yellow); Urobilinogen Urine 0.2 mg/dL (Negative)
[2024-12-15 10:14] LABS: Add Urine Microscopic? YES; Bacteria Urine None Seen /hpf; Hyaline Casts Urine 0-4 /lpf; RBC Urine 0-2 /hpf (0-2); Squamous Epithelial Cell Urine 0-5 /hpf (0-5); WBC Urine 0-5 /hpf (0-5)
[2024-12-15] MEDS: VANCOMYCIN ADD-Vantage 1,000 MG in 0.9% NaCl ADD-Vantage 250 ML 250 MG IV ×2 (10:39→16:52)
[2024-12-15] MEDS: sodium chloride 0.9% 1,000 ML 999 ML IV (10:39)
[2024-12-15 11:13] LABS: Lactic Acid level (Lactate) 2.3 mmol/L (0.5-2.2)
--- NOTE | 2024-12-15 14:01 | PM.HP ---
Providers/Chief Complaint Admitting Physician: Stefanie Cobb MD Primary Care Provider: Nickolas Arroyo MD Chief Complaint: shaking, swollen legs History of Present Illness Luisito Barajas is a 69 year old male with a past medical history of massive PE with cardiac arrest 1 year ago, chronically maintained on warfarin, presenting to the hospital with 24 hours of subjective chills and rapidly developing erythema and tenderness of the right lower extremity On exam patient has extensive cellulitis extending from the through the knee level today. States that cellulitis came on quickly. Overnight he had to wake up with his teeth chattering and placed several blankets over himself but still continued to feel cold. Review of Systems General: Reports: 10 or more systems reviewed and unremarkable except in HPI and below Const: Reports: chills; Denies: fever(s) or body aches Eyes: Denies: change in vision, blurry vision or photophobia ENMT: Reports: hoarseness; Denies: throat pain, enlarged tonsils, odynophagia or nasal congestion Card: Denies: chest pain, palpitations, irregular heart rhythm, edema, swelling of feet/ankles, lightheadedness, pre-syncope, dyspnea on exertion or orthopnea Resp: Denies: dyspnea, productive cough, non-productive cough, wheezing, stridor, pain on inspiration, change in phlegm color, hemoptysis or chest congestion GI: Denies: abdominal pain, nausea, vomiting, hematemesis, coffee ground emesis, dysphagia, heartburn, diarrhea, constipation, GI cramping, change in stool character, hematochezia or melena : Denies: flank pain, dysuria, urinary frequency, urinary urgency, urinary hesitancy or hematuria Musc: Denies: neck pain, back pain, extremity pain, joint swelling, joint warmth or deformity Neuro: Denies: headache(s), numbness in extremities, weakness in extremities, sensory changes, difficulty walking, frequent falls, dizziness, vertigo, behavioral changes, Slurred speech present or seizure-like activity Psych: Denies: anxiety, depression, suicidal ideation or homicidal ideation Endo: Denies: polyuria, polydipsia, tired all the time, cold intolerance or hot flashes Jose/Lymph: Denies: easy bruising or easy bleeding Medications/Allergies Home Medications ?Medication ?Instructions ?Recorded ?Confirmed ?Last Taken ?Type furosemide 20 mg tablet 20 mg PO DAILY edema 12/25/23 12/15/24 Unknown History metoprolol succinate 50 mg 25 mg PO DAILY 12/25/23 12/15/24 Unknown History tablet,extended release 24 hr spironolactone 25 mg tablet 25 mg PO DAILY 12/25/23 12/15/24 12/14/24 History warfarin 5 mg tablet 5 mg PO DAILY 12/25/23 12/15/24 12/14/24 History acetaminophen 500 mg tablet 500 - 1,000 mg PO Q6H PRN Pain 07/03/24 12/15/24 Unknown History (Tylenol Extra Strength) warfarin 1 mg tablet See Rx Instructions .Route .COMPLEX 07/03/24 12/15/24 12/11/24 History fluoxetine 20 mg capsule 20 mg PO DAILY 12/15/24 12/15/24 12/14/24 History Allergies Allergy/AdvReac Type Severity Reaction Status Date / Time No Known Allergies Allergy Verified 07/03/24 12:37 PFSH Acute PFSH: Medical History (Updated 12/15/24 @ 10:25 by Bryon Alvarado DO) Atrial fibrillation with rapid ventricular response Thrombocytopenia Pulmonary embolism Former smoker Atrial fibrillation Family History Mother , from PE in 2020 Pulmonary embolism Social History Smoking and tobacco/nicotine status: former use of tobacco/nicotine Lives independently: Yes Household members: none Housing: Manufactured/Mobile home Marital status: / Marital status details: in 2021 Number of children: 1 Current occupational status: employed Current occupation: Works at [employer] in [place], [place] Vitals/I&O/Wt Last Vital Signs Temp 98.1 F 12/15/24 08:54 Pulse 117 H 12/15/24 10:39 Resp 32 H 12/15/24 09:13 BP 112/72 12/15/24 10:39 Pulse Ox 96 12/15/24 10:39 O2 Del Method Room Air 12/15/24 10:39 Weight last 48 hrs Weight 86.183 kg Physical Exam Narrative: General: No acute distress, AO x3 HEENT: PERRLA, pupils bilaterally equal and reactive, pallors not present Chest: Normal vesicular breath sounds, no added sounds, equal good air entry bilaterally CVS: S1-S2 regular, no murmurs, no tachycardia, no gallops, no rubs Abdomen: Soft, nontender, no organomegaly, bowel sounds present Neuro: No focal deficits, no facial deformity, AO x3, power 5/5 in all limbs Extremities: Right lower extremity cellulitis extending from ankle up to the knee Data 12/15/24 08:58 12/15/24 08:58 Micro: Microbiology 12/15/24 09:00 Blood Culture - Preliminary Blood SPECIMEN COLLECTED 12/15/24 08:58 Blood Culture - Preliminary Blood SPECIMEN COLLECTED Other data: Radiology Impressions Chest X-Ray 12/15/24 08:43 IMPRESSION: No acute pulmonary finding. Laboratory Results WBC 12.20 10^3/uL (3.29-11.43) H 12/15/24 08:58 RBC 4.51 10^6/uL (3.85-5.65) 12/15/24 08:58 Hgb 14.90 g/dL (11.27-16.99) 12/15/24 08:58 Hct 43.5 % (37-53) 12/15/24 08:58 MCV 96.5 fl (82-101) 12/15/24 08:58 MCH 33.0 pg (27-33) 12/15/24 08:58 MCHC 34.3 g/dL (30-55) 12/15/24 08:58 RDW 12.5 % (12.1-15.1) 12/15/24 08:58 Plt Count 129 10^3/cmm (157-399) L 12/15/24 08:58 MPV 10.1 fL (7.4-10.4) 12/15/24 08:58 Neut % (Auto) 87.7 % 12/15/24 08:58 Lymph % (Auto) 2.6 % 12/15/24 08:58 [place] % (Auto) 8.9 % 12/15/24 08:58 Eos % (Auto) 0.2 % 12/15/24 08:58 Baso % (Auto) 0.2 % 12/15/24 08:58 Neut # (Auto) 10.69 10^3/uL (1.8-7.7) H 12/15/24 08:58 Lymph # (Auto) 0.3 10^3/uL (0.8-4.8) L 12/15/24 08:58 [place] # (Auto) 1.1 10^3/uL (0.2-0.9) H 12/15/24 08:58 Eos # (Auto) 0.0 10^3/uL (0.0-0.8) 12/15/24 08:58 Baso # (Auto) 0.0 10^3/uL (0.0-0.1) 12/15/24 08:58 Nucleated RBC % (auto) 0 % 12/15/24 08:58 Nucleated RBCs # 0.0 /100WBC 12/15/24 08:58 PT 25.80 SECONDS (12.1-14.9) H 12/15/24 08:58 INR 2.21 (0.8-1.2) H 12/15/24 08:58 Sodium 135 mmol/L (136-145) L 12/15/24 08:58 Potassium 3.7 mmol/L (3.5-5.1) 12/15/24 08:58 Chloride 100 mmol/L (98-107) 12/15/24 08:58 Carbon Dioxide 20 mmol/L (22-29) L 12/15/24 08:58 Anion Gap 18.7 (5-19) 12/15/24 08:58 BUN 18 mg/dL (8-23) 12/15/24 08:58 Creatinine 1.2 mg/dL (0.7-1.2) 12/15/24 08:58 GFR Calculation 60.2 mL/min (90-130) L 12/15/24 08:58 Glucose 122 mg/dL (65-115) H 12/15/24 08:58 Calculated Osmolality 283 mOsm/kg (285-295) L 12/15/24 08:58 Lactic Acid 2.8 mmol/L (0.5-2.2) H 12/15/24 08:58 Lactic Acid (Sepsis) 2.3 mmol/L (0.5-2.2) H 12/15/24 10:52 Calcium 8.7 mg/dL (8.5-10.5) 12/15/24 08:58 Total Bilirubin 0.9 mg/dL (0.15-1.2) 12/15/24 08:58 AST 23 U/L (0-40) 12/15/24 08:58 ALT 20 U/L (0-41) 12/15/24 08:58 Alkaline Phosphatase 88 U/L (40-130) 12/15/24 08:58 Total Protein 6.8 g/dL (6.6-8.7) 12/15/24 08:58 Albumin 4.1 g/dL (3.5-5.2) 12/15/24 08:58 Globulin 2.7 g/dL (1.3-4.6) 12/15/24 08:58 Urine Color Yellow (Yellow) 12/15/24 09:58 Urine Appearance Clear (CLEAR) 12/15/24 09:58 Urine pH 5.0 (5-7) 12/15/24 09:58 Ur Specific [place] 1.008 (1.005-1.030) 12/15/24 09:58 Urine Protein Negative (Negative) 12/15/24 09:58 Urine Glucose (UA) Negative (Normal) 12/15/24 09:58 Urine Ketones Negative (Negative) 12/15/24 09:58 Urine Blood Non-haemolysed trace (Negative) 12/15/24 09:58 Urine Nitrate Negative (Negative) 12/15/24 09:58 Urine Bilirubin Negative (Negative) 12/15/24 09:58 Urine Urobilinogen 0.2 mg/dL (Negative) 12/15/24 09:58 Ur Leukocyte Esterase Negative (Negative) 12/15/24 09:58 Urine RBC 0-2 /hpf (0-2) 12/15/24 09:58 Urine WBC 0-5 /hpf (0-5) 12/15/24 09:58 Ur Squamous Epith Cells 0-5 /hpf (0-5) 12/15/24 09:58 Amorphous Sediment Not Reportable 12/15/24 09:58 Urine Bacteria None seen /hpf (NONE) 12/15/24 09:58 Hyaline Casts 0-4 /lpf H 12/15/24 09:58 A&P Assessment and plan (1) Cellulitis of right lower leg: Patient presenting to the hospital with rapidly progressing cellulitis of the right lower leg. Currently his leg is warm erythematous and tender to touch from ankle to the knee level. There is noted to be a small draining blister over the medial aspect just above the ankle. Blood cultures have been taken in the emergency room. Currently has a white blood cell count of 12.2. Noted to have athlete's foot which may be a precipitating factor. Start IV antibiotic with cefazolin and vancomycin Local application of clotrimazole in between the toes. Closely monitor for improvement over the next 48 hours following which transition to oral antibiotics may be appropriate. Continue Coumadin with goal INR of 2-3 due to reported history of PE. Pharmacy consult for warfarin dosing. DVT prophylaxis: Warfarin 2 suffice. Unlikely to have DVT contributing as patient is on appropriate anticoagulation with INR within range. Full code PDMP PDMP Reviewed: Not Reviewed Attestations Medical Necessity Statement*: Greater than 2 midnight stay is anticipated Coding Level of Care Code Acute Code for Neli Fwd Diagnoses Cellulitis of right lower leg L03.115
--- NOTE | 2024-12-15 15:56 | PHA.VACGOAL ---
Vancomycin Goal - Goal Vancomycin Goal:: 15-20 mg/L Vancomycin Indication:: Other (SEPSIS/CELLULITIS) - Therapy Day of therpy:: Day [1]of [] . Actual body weight (kg): 86.183 kg - Data Labs: WBC 12.20 10^3/uL (3.29-11.43) H 12/15/24 08:58 RBC 4.51 10^6/uL (3.85-5.65) 12/15/24 08:58 Hgb 14.90 g/dL (11.27-16.99) 12/15/24 08:58 Hct 43.5 % (37-53) 12/15/24 08:58 MCV 96.5 fl (82-101) 12/15/24 08:58 MCH 33.0 pg (27-33) 12/15/24 08:58 MCHC 34.3 g/dL (30-55) 12/15/24 08:58 RDW 12.5 % (12.1-15.1) 12/15/24 08:58 Sodium 135 mmol/L (136-145) L 12/15/24 08:58 Potassium 3.7 mmol/L (3.5-5.1) 12/15/24 08:58 Chloride 100 mmol/L (98-107) 12/15/24 08:58 Carbon Dioxide 20 mmol/L (22-29) L 12/15/24 08:58 Anion Gap 18.7 (5-19) 12/15/24 08:58 BUN 18 mg/dL (8-23) 12/15/24 08:58 Creatinine 1.2 mg/dL (0.7-1.2) 12/15/24 08:58 GFR Calculation 60.2 mL/min (90-130) L 12/15/24 08:58 Treatment plan:: new consult Regimen:: New start vancomycin for sepsis/cellulitis. Started on maintenance dose of 1000 mg q12h.
[2024-12-15] MEDS: pantoprazole DR 40 mg Tablet PO (16:52)
[2024-12-15] MEDS: sodium chloride 0.9% 1,000 ML 125 ML IV (18:18)
[2024-12-15] MEDS: ceFAZolin 2,000 mg SDV 2000 MG IVP (18:18)
[2024-12-15] MEDS: acetaminophen 325 mg Tablet 650 MG PO (20:00)
[2024-12-15] MEDS: cefTRIAXone 1,000 mg SDV 1000 MG IVP (23:30)
[2024-12-16] VITALS (9 sets, daily range): BP systolic 96–102; BP diastolic 55–63; PULSE 83–92; RESP 17–19; TEMP 36.9–37.7; O2SAT 94–96
[2024-12-16] MEDS: ceFAZolin 2,000 mg SDV 2000 MG IVP ×3 (01:08→17:29)
[2024-12-16] MEDS: VANCOMYCIN ADD-Vantage 1,000 MG in 0.9% NaCl ADD-Vantage 250 ML 250 MG IV ×2 (04:14→17:28)
[2024-12-16 04:31] LABS: Acinetobacter baumannii Not Detected (NOT DETECT); Bacteroides fragilis Not Detected (NOT DETECT); Citrobacter Not Detected (NOT DETECT); Cronobacter sakazakii Not Detected (NOT DETECT); Enterobacter cloacae complex Not Detected (NOT DETECT); Enterobacter non cloacae Not Detected (NOT DETECT); Fusobacterium necrophorum Not Detected (NOT DETECT); Fusobacterium nucleatum Not Detected (NOT DETECT); Haemophilus influenzae Not Detected (NOT DETECT); Klebsiella pneumoniae group Not Detected (NOT DETECT); Morganella morganii Not Detected (NOT DETECT); Neisseria meningitidis Not Detected (NOT DETECT); Pan Candida Not Detected (NOT DETECT); Pan Gram-Positive Not Detected (NOT DETECT); Proteus mirabilis Not Detected (NOT DETECT); Pseudomonas aeruginosa Not Detected (NOT DETECT); Salmonella Not Detected (NOT DETECT); Serratia Not Detected (NOT DETECT); Serratia marcescens Not Detected (NOT DETECT); Stenotrophomonas maltophilia Not Detected (NOT DETECT)
[2024-12-16 05:36] LABS: Basophils % 0.3 %; Eosinophils # 0.1 10^3/uL (0.0-0.8); Eosinophils % 0.5 %; Hematocrit 38.9 % (37-53); Lymphocytes # 0.7 10^3/uL (0.8-4.8); Lymphocytes % 5.1 %; Mean Corpuscular HGB Conc 33.9 g/dL (30-55); Mean Corpuscular Hemoglobin 33.2 pg (27-33); Mean Corpuscular Volume 97.7 fl (82-101); Mean Platelet Volume 10.6 fL (7.4-10.4); Monocytes # 1.2 10^3/uL (0.2-0.9); Monocytes % 9.1 %; Neutrophils # 11.01 10^3/uL (1.8-7.7); Neutrophils % 84.2 %; Nucleated Red Blood Cells % 0 %; Platelet Count 108 10^3/cmm (157-399); Red Blood Count 3.98 10^6/uL (3.85-5.65); Red Cell Distribution Width 12.8 % (12.1-15.1); White Blood Count 13.06 10^3/uL (3.29-11.43)
[2024-12-16 05:50] LABS: INR 2.48 (0.8-1.2)
[2024-12-16 06:00] LABS: Alanine Aminotransferase 13 U/L (0-41); Albumin Level 3.3 g/dL (3.5-5.2); Alkaline Phosphatase 64 U/L (40-130); Anion Gap 13.1 (5-19); Aspartate Amino Transferase 15 U/L (0-40); Blood Urea Nitrogen 17 mg/dL (8-23); Calcium 7.9 mg/dL (8.5-10.5); Carbon Dioxide 25 mmol/L (22-29); Chloride 101 mmol/L (98-107); Creatinine Clr Calc Pharmacy 81.6185; Globulin 2.8 g/dL (1.3-4.6); Glomerular Filtration Rate 66.6 mL/min (90-130); Glucose 106 mg/dL (65-115); Magnesium 1.7 mg/dL (1.7-2.3); Osmolality Calculated 282 mOsm/kg (285-295); Potassium 4.1 mmol/L (3.5-5.1); Sodium 135 mmol/L (136-145); Total Bilirubin 0.7 mg/dL (0.15-1.2); Total Protein 6.1 g/dL (6.6-8.7)
[2024-12-16] MEDS: pantoprazole DR 40 mg Tablet PO (09:09)
[2024-12-16] MEDS: fluoxetine 20 mg Capsule PO (09:09)
[2024-12-16] MEDS: metoprolol succinate ER (24 HR) 50 mg Tablet 25 MG PO (09:09)
[2024-12-16] MEDS: clotrimazole 1% cream 30 gm 1 APPLIC TOPICAL ×2 (09:10→17:30)
[2024-12-16] MEDS: cefepime 1,000 mg SDV 1000 MG IVP ×2 (09:21→20:49)
--- NOTE | 2024-12-16 09:46 | PC.CHAP ---
Pastoral Care Encounter/Spiritual Assessment Type of Contact [] Declined single stayer operator visit [] Patient/Family/Request visit [] Outpatient visit [] Follow-up visit [] Physician referral [] Code/Alert [x] Routine visit [] Staff referral [] Actively dying [] Patient sleeping [] Family support [] [] Out of room [] Palliative care [] [] Receiving care in room [] Pre-surgical visit [] Trauma [] Long length of stay [] ICU visit [] Other: Relational/Emotional Strength [] Patient feels connected with others/family/visitors/staff [] Distress [] Loneliness/isolation [] Abandonment Spirituality of Patient [x] Person of Fiona [] Attends Adventism of their Fiona [x] Believes in Prayer [] Reads Bible or Episcopal materials [] There are Spiritual issues to be addressed Supply Room Clerk Interventions [x] Prayer [x] Active listening [] Non-anxious presence [] Spiritual/emotional support [] Crisis/trauma care [] Spiritual counseling [] Bereavement support [] Provided bereavement packet [x] Provided Bible/devotional materials [] Provided toy/stuffed animal, coloring book to patient or family member [] Provided Communion [] Anointing/[place] [] Salvation [x] Completed spiritual assessment [] Other: Impact on Illness or Injury [] Angry [] Fearful [] Anxious [] Often cries [] Exhaustion [] Unable to work [] Unable to attend congregational [] Unable to walk/stand [] Unable to read [] Unable to drive [] Unable to eat/drink [] Unable to sleep [] Unable to be with family [] Patient intubated [] Other: Summary Time spent with patient 5 min
[2024-12-16] MEDS: warfarin 5 mg Tablet PO (13:38)
--- NOTE | 2024-12-16 14:07 | P.PN_ITS ---
Subjective 2 Subjective: Seen this morning. 2 out of 4 blood cultures positive for g marissa-negative rods. Resting comfortably in bed. States his leg appears better Vitals/I&O/Wt Last Vital Signs Temp 98.8 F 12/16/24 11:41 Pulse 83 12/16/24 11:41 Resp 17 12/16/24 11:41 BP 101/61 12/16/24 11:41 Pulse Ox 95 12/16/24 11:41 O2 Del Method Room Air 12/16/24 11:41 12/15/24 12/16/24 12/16/24 22:59 06:59 14:59 Intake Total 2051.917 / 2051.7 250 / 2302.917 600 / 600 Output Total 425 / 425 275 / 275 Balance 2051.7 / 2051.7 -175 / 1877.917 325 / 325 Weight last 48 hrs Weight 103.192 kg Weight 101.151 kg Weight 86.183 kg Physical Exam 2 Narrative: General: No acute distress, AO x3 HEENT: PERRLA, pupils bilaterally equal and reactive, pallors not present Chest: Normal vesicular breath sounds, no added sounds, equal good air entry bilaterally CVS: S1-S2 regular, no murmurs, no tachycardia, no gallops, no rubs Abdomen: Soft, nontender, no organomegaly, bowel sounds present Neuro: No focal deficits, no facial deformity, AO x3, power 5/5 in all limbs Extremities: Right lower extremity cellulitis extending from ankle up to the knee, significant redness still present however slightly regressing from marked areas. Significant 3+ ankle edema right lower extremity Data 12/16/24 04:48 12/16/24 04:48 Micro: Microbiology 12/16/24 09:59 Blood Culture - Preliminary Blood SPECIMEN COLLECTED 12/16/24 09:54 Blood Culture - Preliminary Blood SPECIMEN COLLECTED 12/15/24 08:58 Blood Culture - Preliminary Blood 12/15/24 09:00 Blood Culture - Preliminary Blood A&P Assessment and plan (1) Cellulitis of right lower leg: Patient presenting to the hospital with rapidly progressing cellulitis of the right lower leg. Currently his leg is warm erythematous and tender to touch from ankle to the knee level. There is noted to be a small draining blister over the medial aspect just above the ankle. Blood cultures have been taken in the emergency room. Currently has a white blood cell count of 12.2. Noted to have athlete's foot which may be a precipitating factor. Start IV antibiotic with cefazolin and vancomycin Local application of clotrimazole in between the toes. Closely monitor for improvement over the next 48 hours following which transition to oral antibiotics may be appropriate. Continue Coumadin with goal INR of 2-3 due to reported history of PE. Pharmacy consult for warfarin dosing. DVT prophylaxis: Warfarin 2 suffice. Unlikely to have DVT contributing as patient is on appropriate anticoagulation with INR within range. Full code (2) Gram-negative bacteremia: (3) Positive blood culture: Plan 12/16/2024 2 out of 4 blood cultures positive for gram-negative rods Continue vancomycin to continue to cover for MRSA and escalate to cefepime. Stop cefazolin. Repeat blood cultures today. Will need 2 weeks of antibiotic from last negative blood culture. Requires continued IV antibiotics at this time. PDMP PDMP Reviewed: Not Reviewed Attestations 2 Medical Necessity Statement*: Greater than 2 midnight stay is anticipated Diagnoses Cellulitis of right lower leg L03.115 Gram-negative bacteremia R78.81 Positive blood culture R78.81
[2024-12-17] VITALS (9 sets, daily range): BP systolic 99–111; BP diastolic 61–71; PULSE 68–96; RESP 16–17; TEMP 36.7–37.1; O2SAT 94–96
[2024-12-17] MEDS: ceFAZolin 2,000 mg SDV 2000 MG IVP ×3 (01:59→17:18)
[2024-12-17 03:54] LABS: Basophils % 0.4 %; Eosinophils # 0.2 10^3/uL (0.0-0.8); Eosinophils % 1.7 %; Hematocrit 38.8 % (37-53); Lymphocytes # 0.8 10^3/uL (0.8-4.8); Lymphocytes % 8.3 %; Mean Corpuscular Hemoglobin 32.6 pg (27-33); Mean Corpuscular Volume 98.7 fl (82-101); Monocytes # 1.1 10^3/uL (0.2-0.9); Monocytes % 11.3 %; Neutrophils # 7.27 10^3/uL (1.8-7.7); Neutrophils % 77.9 %; Nucleated Red Blood Cells % 0 %; Platelet Count 105 10^3/cmm (157-399); Red Blood Count 3.93 10^6/uL (3.85-5.65); Red Cell Distribution Width 12.7 % (12.1-15.1); White Blood Count 9.33 10^3/uL (3.29-11.43)
[2024-12-17 04:24] LABS: Alanine Aminotransferase 9 U/L (0-41); Albumin Level 3.3 g/dL (3.5-5.2); Alkaline Phosphatase 68 U/L (40-130); Anion Gap 15.9 (5-19); Aspartate Amino Transferase 14 U/L (0-40); Blood Urea Nitrogen 13 mg/dL (8-23); Calcium 7.9 mg/dL (8.5-10.5); Carbon Dioxide 22 mmol/L (22-29); Chloride 102 mmol/L (98-107); Creatinine Clr Calc Pharmacy 90.5968; Globulin 2.4 g/dL (1.3-4.6); Glomerular Filtration Rate 74.3 mL/min (90-130); Glucose 112 mg/dL (65-115); Osmolality Calculated 283 mOsm/kg (285-295); Potassium 3.9 mmol/L (3.5-5.1); Sodium 136 mmol/L (136-145); Total Bilirubin 0.7 mg/dL (0.15-1.2); Total Protein 5.7 g/dL (6.6-8.7)
[2024-12-17] MEDS: VANCOMYCIN ADD-Vantage 1,000 MG in 0.9% NaCl ADD-Vantage 250 ML 250 MG IV (05:09)
[2024-12-17] MEDS: cefepime 1,000 mg SDV 1000 MG IVP ×2 (08:04→21:32)
[2024-12-17] MEDS: fluoxetine 20 mg Capsule PO (08:05)
[2024-12-17] MEDS: pantoprazole DR 40 mg Tablet PO (08:05)
[2024-12-17] MEDS: clotrimazole 1% cream 30 gm 1 APPLIC TOPICAL ×2 (08:06→17:18)
[2024-12-17] MEDS: metoprolol succinate ER (24 HR) 50 mg Tablet 25 MG PO (10:45)
--- NOTE | 2024-12-17 11:42 | P.PN_ITS ---
Subjective 2 Subjective: Seen this morning. Awaiting culture results. Redness improving on left leg however not resulted. Vitals/I&O/Wt Last Vital Signs Temp 98.1 F 12/17/24 08:00 Pulse 80 12/17/24 08:00 Resp 17 12/17/24 08:00 BP 111/69 12/17/24 08:00 Pulse Ox 95 12/17/24 08:00 O2 Del Method Room Air 12/17/24 08:00 12/16/24 12/17/24 12/17/24 22:59 06:59 14:59 Intake Total 250 / 850 730 / 730 Output Total 925 / 1200 1075 / 2275 200 / 200 Balance -675 / -350 -1075 / -1425 530 / 530 Weight last 48 hrs Weight 102.058 kg Weight 103.192 kg Weight 101.151 kg Physical Exam 2 Narrative: General: No acute distress, AO x3 HEENT: PERRLA, pupils bilaterally equal and reactive, pallors not present Chest: Normal vesicular breath sounds, no added sounds, equal good air entry bilaterally CVS: S1-S2 regular, no murmurs, no tachycardia, no gallops, no rubs Abdomen: Soft, nontender, no organomegaly, bowel sounds present Neuro: No focal deficits, no facial deformity, AO x3, power 5/5 in all limbs Extremities: Right lower extremity cellulitis extending from ankle up to the knee, significant redness still present however moderate improvement noted. Significant 3+ ankle edema right lower extremity is also improving. Data 12/17/24 03:40 12/17/24 03:40 Micro: Microbiology 12/16/24 09:59 Blood Culture - Preliminary Blood NEGATIVE TO DATE 12/16/24 09:54 Blood Culture - Preliminary Blood NEGATIVE TO DATE 12/15/24 08:58 Blood Culture - Preliminary Blood 12/15/24 09:00 Blood Culture - Preliminary Blood A&P Assessment and plan (1) Cellulitis of right lower leg: Patient presenting to the hospital with rapidly progressing cellulitis of the right lower leg. Currently his leg is warm erythematous and tender to touch from ankle to the knee level. There is noted to be a small draining blister over the medial aspect just above the ankle. Blood cultures have been taken in the emergency room. Currently has a white blood cell count of 12.2. Noted to have athlete's foot which may be a precipitating factor. Start IV antibiotic with cefazolin and vancomycin Local application of clotrimazole in between the toes. Closely monitor for improvement over the next 48 hours following which transition to oral antibiotics may be appropriate. Continue Coumadin with goal INR of 2-3 due to reported history of PE. Pharmacy consult for warfarin dosing. DVT prophylaxis: Warfarin 2 suffice. Unlikely to have DVT contributing as patient is on appropriate anticoagulation with INR within range. Full code (2) Gram-negative bacteremia: (3) Positive blood culture: Plan 12/16/2024 2 out of 4 blood cultures positive for gram-negative rods Continue vancomycin to continue to cover for MRSA and escalate to cefepime. Stop cefazolin. Repeat blood cultures today. Will need 2 weeks of antibiotic from last negative blood culture. Requires continued IV antibiotics at this time. 12/17/2024 Continue vancomycin and cefepime. Repeat cultures negative to date Continue IV antibiotics at this time. Await final blood culture results. Check INR in AM. Continue warfarin as per pharmacy dosing. PDMP PDMP Reviewed: Not Reviewed Attestations 2 Medical Necessity Statement*: Greater than 2 midnight stay is anticipated Diagnoses Cellulitis of right lower leg L03.115 Gram-negative bacteremia R78.81 Positive blood culture R78.81
[2024-12-17] MEDS: warfarin 5 mg Tablet PO (14:34)
[2024-12-17] MEDS: vancomycin 1,500 MG/300 ML PIGGYBACK 200 MG IV (17:19)
[2024-12-18] VITALS: BP 111/69; PULSE 80; RESP 18; TEMP 36.8; O2SAT 95
[2024-12-18] MEDS: ceFAZolin 2,000 mg SDV 2000 MG IVP ×2 (01:24→11:00)
[2024-12-18 04:00] VITALS: BP 102/67; PULSE 84; RESP 16; TEMP 36.5; O2SAT 95
[2024-12-18] MEDS: vancomycin 1,500 MG/300 ML PIGGYBACK 200 MG IV (05:08)
[2024-12-18 05:44] VITALS: PULSE 74
[2024-12-18 05:53] LABS: Basophils % 0.7 %; Eosinophils # 0.3 10^3/uL (0.0-0.8); Eosinophils % 4.8 %; Hematocrit 38.9 % (37-53); Lymphocytes # 0.8 10^3/uL (0.8-4.8); Lymphocytes % 12.7 %; Mean Corpuscular HGB Conc 33.9 g/dL (30-55); Mean Corpuscular Volume 97.3 fl (82-101); Mean Platelet Volume 10.7 fL (7.4-10.4); Monocytes # 0.7 10^3/uL (0.2-0.9); Monocytes % 11.1 %; Neutrophils # 4.24 10^3/uL (1.8-7.7); Neutrophils % 70.2 %; Nucleated Red Blood Cells % 0 %; Platelet Count 123 10^3/cmm (157-399); Red Cell Distribution Width 12.8 % (12.1-15.1); White Blood Count 6.04 10^3/uL (3.29-11.43)
[2024-12-18 06:05] LABS: INR 1.64 (0.8-1.2)
[2024-12-18 06:14] LABS: Alanine Aminotransferase 22 U/L (0-41); Albumin Level 3.2 g/dL (3.5-5.2); Alkaline Phosphatase 112 U/L (40-130); Anion Gap 14.9 (5-19); Aspartate Amino Transferase 35 U/L (0-40); Blood Urea Nitrogen 12 mg/dL (8-23); Calcium 8.3 mg/dL (8.5-10.5); Carbon Dioxide 21 mmol/L (22-29); Chloride 102 mmol/L (98-107); Creatinine Clr Calc Pharmacy 100.5622; Globulin 3.4 g/dL (1.3-4.6); Glomerular Filtration Rate 83.9 mL/min (90-130); Glucose 107 mg/dL (65-115); Magnesium 2.2 mg/dL (1.7-2.3); Osmolality Calculated 278 mOsm/kg (285-295); Potassium 3.9 mmol/L (3.5-5.1); Sodium 134 mmol/L (136-145); Total Bilirubin 0.6 mg/dL (0.15-1.2); Total Protein 6.6 g/dL (6.6-8.7)
[2024-12-18 07:19] VITALS: BP 114/70; PULSE 85; RESP 16; TEMP 36.7; O2SAT 95
[2024-12-18] MEDS: pantoprazole DR 40 mg Tablet PO (09:20)
[2024-12-18] MEDS: cefepime 1,000 mg SDV 1000 MG IVP (09:20)
[2024-12-18] MEDS: clotrimazole 1% cream 30 gm 1 APPLIC TOPICAL (09:20)
[2024-12-18] MEDS: metoprolol succinate ER (24 HR) 50 mg Tablet 25 MG PO (09:20)
[2024-12-18] MEDS: fluoxetine 20 mg Capsule PO (09:22)
--- NOTE | 2024-12-18 09:42 | PC.SOCIAL ---
IMM Update Pg 2 of IMM updated. Copy provided at bedside.
[2024-12-18 11:12] VITALS: BP 101/66; PULSE 93; RESP 16; TEMP 36.4; O2SAT 95
[2024-12-18 13:45] VITALS: BP 101/66; PULSE 93; RESP 16; TEMP 36.4; O2SAT 95
[2024-12-18] MEDS: warfarin 5 mg Tablet PO ×2 (14:05→14:10)
--- NOTE | 2024-12-18 14:35 | P.DS_ITS ---
Discharge Providers Date of Admission: 12/15/24 10:01 Date of Discharge: December 18, 2024 Attending Provider at Admission: Stefanie Cobb MD Attending Provider at Discharge: Brenda Ardon MD Primary Care Provider: Nickolas Arroyo MD Diagnoses at Discharge Discharge Diagnosis (1) Cellulitis of right lower leg: Status: Acute (2) Gram-negative bacteremia: Status: Acute (3) Positive blood culture: Status: Acute Reason for Visit Reason for Visit: shaking, swollen legs Hospital Course Hospital Course Patient presented to the hospital with right leg cellulitis. Leg is warm erythematous tender to touch upon arrival. Also had athlete's foot which may be a precipitating factor. He was given clotrimazole to apply to foot twice a day. He was on cefazolin and vancomycin during hospital stay. Cefazolin was discontinued and was switched to cefepime as patient's blood culture 3 out of 4 bottles were positive for gram-negative rods. Patient takes warfarin for reported history of PE. His INR has been at goal. Unlikely to be a DVT. I did discuss blood culture results with infection specialist. We will send patient home on ciprofloxacin and linezolid for another 12 days. Patient will be given weekly CBC and will follow-up with primary care doctor. Physical Exam Narrative: General: No acute distress, AO x3 HEENT: PERRLA, pupils bilaterally equal and reactive, pallors not present Chest: Normal vesicular breath sounds, no added sounds, equal good air entry bilaterally CVS: S1-S2 regular, no murmurs, no tachycardia, no gallops, no rubs Abdomen: Soft, nontender, no organomegaly, bowel sounds present Neuro: No focal deficits, no facial deformity, AO x3, Extremities: Right lower extremity cellulitis extending from ankle up to the knee, significant redness present on admission. Ankle edema has significantly improved and redness has progressed. Very mild redness noted around ankle area. Significant improvement prior to admission. Discharge Data Studies Completed and Pending Completed Studies During Hospitalization Category Date Time Status XR chest 1V portable [id number] Stat Exams 12/15/24 08:43 Completed Pending at discharge Category Date Time Status Blood Culture Stat Lab 12/15/24 08:58 Results Blood Culture Stat Lab 12/16/24 09:59 Results Radiology Impressions Chest X-Ray 12/15/24 08:43 IMPRESSION: No acute pulmonary finding. Laboratory Results WBC 6.04 10^3/uL (3.29-11.43) 12/18/24 05:04 RBC 4.00 10^6/uL (3.85-5.65) 12/18/24 05:04 Hgb 13.20 g/dL (11.27-16.99) 12/18/24 05:04 Hct 38.9 % (37-53) 12/18/24 05:04 MCV 97.3 fl (82-101) 12/18/24 05:04 MCH 33.0 pg (27-33) 12/18/24 05:04 MCHC 33.9 g/dL (30-55) 12/18/24 05:04 RDW 12.8 % (12.1-15.1) 12/18/24 05:04 Plt Count 123 10^3/cmm (157-399) L 12/18/24 05:04 MPV 10.7 fL (7.4-10.4) H 12/18/24 05:04 Neut % (Auto) 70.2 % 12/18/24 05:04 Lymph % (Auto) 12.7 % 12/18/24 05:04 [place] % (Auto) 11.1 % 12/18/24 05:04 Eos % (Auto) 4.8 % 12/18/24 05:04 Baso % (Auto) 0.7 % 12/18/24 05:04 Neut # (Auto) 4.24 10^3/uL (1.8-7.7) 12/18/24 05:04 Lymph # (Auto) 0.8 10^3/uL (0.8-4.8) 12/18/24 05:04 [place] # (Auto) 0.7 10^3/uL (0.2-0.9) 12/18/24 05:04 Eos # (Auto) 0.3 10^3/uL (0.0-0.8) 12/18/24 05:04 Baso # (Auto) 0.0 10^3/uL (0.0-0.1) 12/18/24 05:04 Nucleated RBC % (auto) 0 % 12/18/24 05:04 Nucleated RBCs # 0.0 /100WBC 12/18/24 05:04 PT 20.50 SECONDS (12.1-14.9) H 12/18/24 05:04 INR 1.64 (0.8-1.2) H 12/18/24 05:04 Sodium 134 mmol/L (136-145) L 12/18/24 05:04 Potassium 3.9 mmol/L (3.5-5.1) 12/18/24 05:04 Chloride 102 mmol/L (98-107) 12/18/24 05:04 Carbon Dioxide 21 mmol/L (22-29) L 12/18/24 05:04 Anion Gap 14.9 (5-19) 12/18/24 05:04 BUN 12 mg/dL (8-23) 12/18/24 05:04 Creatinine 0.9 mg/dL (0.7-1.2) 12/18/24 05:04 GFR Calculation 83.9 mL/min (90-130) L 12/18/24 05:04 Glucose 107 mg/dL (65-115) 12/18/24 05:04 Calculated Osmolality 278 mOsm/kg (285-295) L 12/18/24 05:04 Lactic Acid 2.8 mmol/L (0.5-2.2) H 12/15/24 08:58 Lactic Acid (Sepsis) 2.3 mmol/L (0.5-2.2) H 12/15/24 10:52 Calcium 8.3 mg/dL (8.5-10.5) L 12/18/24 05:04 Magnesium 2.2 mg/dL (1.7-2.3) 12/18/24 05:04 Total Bilirubin 0.6 mg/dL (0.15-1.2) 12/18/24 05:04 AST 35 U/L (0-40) 12/18/24 05:04 ALT 22 U/L (0-41) 12/18/24 05:04 Alkaline Phosphatase 112 U/L (40-130) 12/18/24 05:04 Total Protein 6.6 g/dL (6.6-8.7) 12/18/24 05:04 Albumin 3.2 g/dL (3.5-5.2) L 12/18/24 05:04 Globulin 3.4 g/dL (1.3-4.6) 12/18/24 05:04 Urine Color Yellow (Yellow) 12/15/24 09:58 Urine Appearance Clear (CLEAR) 12/15/24 09:58 Urine pH 5.0 (5-7) 12/15/24 09:58 Ur Specific [place] 1.008 (1.005-1.030) 12/15/24 09:58 Urine Protein Negative (Negative) 12/15/24 09:58 Urine Glucose (UA) Negative (Normal) 12/15/24 09:58 Urine Ketones Negative (Negative) 12/15/24 09:58 Urine Blood Non-haemolysed trace (Negative) 12/15/24 09:58 Urine Nitrate Negative (Negative) 12/15/24 09:58 Urine Bilirubin Negative (Negative) 12/15/24 09:58 Urine Urobilinogen 0.2 mg/dL (Negative) 12/15/24 09:58 Ur Leukocyte Esterase Negative (Negative) 12/15/24 09:58 Urine RBC 0-2 /hpf (0-2) 12/15/24 09:58 Urine WBC 0-5 /hpf (0-5) 12/15/24 09:58 Ur Squamous Epith Cells 0-5 /hpf (0-5) 12/15/24 09:58 Amorphous Sediment Not Reportable 12/15/24 09:58 Urine Bacteria None seen /hpf (NONE) 12/15/24 09:58 Hyaline Casts 0-4 /lpf H 12/15/24 09:58 Vancomycin Trough 9.0 ug/mL (10-15) L 12/17/24 03:40 Vitals Last Vital Signs Temp 97.6 F 12/18/24 13:45 Pulse 93 12/18/24 13:45 Resp 16 12/18/24 13:45 BP 101/66 12/18/24 13:45 Pulse Ox 95 12/18/24 13:45 O2 Del Method Room Air 12/18/24 11:12 Discharge Plan Discharge Patient Disposition: Home Condition: Stable Prescriptions: New ciprofloxacin HCl [Cipro] 500 mg tablet 500 mg PO BID 12 Days Qty: 24 0RF linezolid 600 mg tablet 600 mg PO BID 12 Days Qty: 24 0RF clotrimazole 1 % cream 1 applic topical BID 14 Days Qty: 30 0RF Continued furosemide 20 mg tablet 20 mg PO DAILY warfarin 5 mg tablet 5 mg PO DAILY acetaminophen [Tylenol Extra Strength] 500 mg tablet 500 - 1,000 mg PO Q6H PRN (Reason: Pain) warfarin 1 mg tablet See Rx Instructions .ROUTE .COMPLEX Rx Instructions: Take 1 tablet by mouth on monday and Monday with a 5mg tablet . metoprolol succinate 50 mg tablet extended release 24 hr 25 mg PO DAILY fluoxetine 20 mg capsule 20 mg PO DAILY Discontinued spironolactone 25 mg tablet 25 mg PO DAILY Discharge Orders: Discharge Order (Routine); Ordered 12/18/24 Ordered By: Brenda Ardon Other Ambulatory Orders: Complete Blood Count w/Auto (Q7D) Timeframe: 20241225 Location: Determined by Patient Ordered By: Brenda Ardon Complete Blood Count w/Auto (Q7D) Timeframe: 20250101 Location: Determined by Patient Ordered By: Brenda Ardon Referrals: Nickolas Arroyo MD [Primary Care Provider, [facility]] - 12/25/24 9:45 am Discharge Diet: Cardiac Discharge Activity: Resume usual activity Patient Instructions: Ciprofloxacin (By mouth) (Cipro), Linezolid (By mouth), Cellulitis (GEN), Sepsis (GEN), Opioid Safety Discharge Attestations Time Spent in Discharge Care*: greater than 30 min Quality Metrics Clinical Quality Measures [ No reported AMI, CVA or VTE this stay] Coding Level of Care Code 10408 Diagnoses Cellulitis of right lower leg L03.115 Gram-negative bacteremia R78.81 Positive blood culture R78.81
== END 2024-12-18 14:22 | disposition home or self-care (01) | DRG 603 ==
LOC: ER 10:08 → ER IP 10:20 → MEDSURG 14:45
PROVIDERS: Admitting Provider Student in an Organized Health Care Education/Training Program; Emergency Provider Family Medicine; PCP Family Medicine; Visit Provider Internal Medicine
DX: L03.115 Cellulitis of right lower limb (principal); B96.89 Other specified bacterial agents as the cause of diseases classified elsewhere; B35.3 Tinea pedis; R00.0 Tachycardia, unspecified; I48.91 Unspecified atrial fibrillation; D69.6 Thrombocytopenia, unspecified; I25.2 Old myocardial infarction; Z79.01 Long term (current) use of anticoagulants; Z86.711 Personal history of pulmonary embolism; Z87.891 Personal history of nicotine dependence
CPT/HCPCS: 36415; 71045; 80053; 80202; 81001; 83605; 83735; 85025; 85610; 87040; 87077; 87150; 87186; 87205; 93005; 96365; 99285; J0690; J0692; J0696; J3370; J7030; J7050; J9999

== ENCOUNTER → 2025-04-03 14:42 | Outpatient (BNVA) | payer MEDICARE, SELFPAY | PROVIDERS: PCP Family Medicine; Visit Provider Internal Medicine | DX: I48.91 Unspecified atrial fibrillation (principal); Z86.711 Personal history of pulmonary embolism; Z79.01 Long term (current) use of anticoagulants; Z87.891 Personal history of nicotine dependence | CPT/HCPCS: 99214 ==